=== PATIENT | female | born 1955 | race African-American/Black ===

== ENCOUNTER 2017-08-08 11:52 | Emergency (ER) | payer MEDICARE, BC ==
[~2017-08-08] VITALS: Ht 160 cm; Wt 78.0 kg
[~2017-08-08 11:52] MED LIST: ACCUPRIL10 MG; AMARYL4 MG OR; AMLODIPINE5 MG PO; AUGMENTIN250 MG PO; BD INSULIN0.5 MG/31 XX; CHERATUSSIN OR; CRESTOR10 MG PO; DIFLUCAN150 MG PO; FLEXERIL10 MG PO; GLIPIZIDE10 MG PO; GLUCOPHAGE500 MG OR; HUMULIN 70/30 SC; HUMULIN R1 M1 SC; JANUMET1 TAB PO; JANUVIA50 MG PO; LANTUS SOLOSTAR SC; LANTUS100 MG/ML SC; LORTAB 5 OR; LORTAB 7.5 PO; LOTRISONE TOP; MEDDOSEPAK OR; NAPROSYN500 MG OR; NOVOLIN R IJ; NOVOLOG MIX100 U/ML SC; PERCOCET 5/325M1 TAB PO; PRADAXA150 MG; PRAVACHOL40 MG PO; PRAVASTATIN SOD20 MG PO; PRAVASTATIN20 MG PO; PROPRANOLOL HCL20 MG PO; RISPERDAL0.5 MG PO; SEPTRA PO; ULTRAM50 MG OR; VANCOMYCIN HCL1 GM IV; VICTOZA18 MG/3 ML SC; ZITHROMAX250 MG OR; ZOVIRAX800 MG PO; [UNRECOGNIZED DRUG - REMARK] XX; [UNRECOGNIZED DRUG - SUPPLY] SC
[2017-08-08] MEDS ORDERED: LISINOPRIL20 M1 PO (13:14)
[2017-08-08 13:15] LABS: ANION GAP 18 (6-22 (CALC)); BUN 30 mg/dL (8-23); BUN/CREATININE RATIO 20 (12-20 (CALC)); CALCIUM 10.3 mg/dL (8.4-10.2); CARBON DIOXIDE 25 mmol/l (22-30); CHLORIDE 104 mmol/l (95-108); CREATININE 1.5 mg/dL (0.5-1.0); GFR 35 ML/MIN (>=60 (CALC)); GFR FOR AFR.AMER. 43 ML/MIN (>=60 (CALC)); GLUCOSE 81 mg/dL (82-115); POTASSIUM 4.5 mmol/l (3.5-5.1); SODIUM 143 mmol/l (137-146)
[2017-08-08] MEDS ORDERED: FOLIC ACID800 MCG PO (13:15)
[2017-08-08] MEDS ORDERED: ASPIRIN 81 LOW81 MG (13:16)
[2017-08-08] MEDS ORDERED: VITAMIN B-COMPL1 TAB (13:16)
[2017-08-08] MEDS ORDERED: STOOL SOFTENER100 MG PO (13:17)
[2017-08-08 13:40] LABS: HEMOGLOBIN 13.1 g/dl (12.0-16.0); RED BLOOD COUNT 4.67 mill/uL (4.20-5.60)
[2017-08-08 13:41] LABS: HEMATOCRIT 39.4 % (37.0-47.0); MEAN CELL VOLUME 84.4 fL CALC (80.0-100.0); MEAN CORPUSCULAR HGB 28.1 pG CALC (26.0-32.0); MEAN CORPUSCULAR HGB CONC 33.2 g/L CALC (32.0-36.0); NEUT% 65 % (42-76); PLATELET COUNT 333 thou/uL (130-400)
[2017-08-08 13:42] LABS: BASO% 2 % (0-3); EOS% 1 % (0-8); LYMPH% 22 % (15-41); MONO% 10 % (2-13)
[2017-08-08 13:43] VITALS: BP 151/114
== END 2017-08-08 13:50 | disposition home or self-care (01) ==
LOC: ED 11:52
PROVIDERS: Family Medicine
DX: R41.82 Altered mental status, unspecified (principal); E11.649 Type 2 diabetes mellitus with hypoglycemia without coma; Z79.4 Long term (current) use of insulin; I10 Essential (primary) hypertension

== ENCOUNTER 2017-09-04 19:06 | Observation (INO) | payer MEDICARE, BC ==
[~2017-09-04] VITALS: Ht 160 cm; Wt 70.3 kg
[~2017-09-04 19:06] MED LIST changes: +ASPIRIN 81 LOW81 MG; +FOLIC ACID800 MCG PO; +LISINOPRIL20 M1 PO; +STOOL SOFTENER100 MG PO; +VITAMIN B-COMPL1 TAB
--- NOTE | 2017-09-04 19:07 | NUR ---
CLEANED OF DIARRHEA. FAMILY CONFIRMS THAT CONFUSION IS BASELINE. THEY CALLED EMS FOR WEAKNESS X 3 DAYS. STATES SHE IS TAKING HER INSULIN BUT NOT EATING.
--- NOTE | 2017-09-04 19:40 | NUR ---
FAMILY AT BEDSIDE.
[2017-09-04] MEDS ORDERED: LIPITOR40 M1 PO (19:50)
--- NOTE | 2017-09-04 21:00 | NUR ---
RESTING QUIETLY AWAITING DISPOSITION.
[2017-09-04 21:10] LABS: C. DIFFICILE TOXIN A&B NEGATIVE (NEGATIVE)
[2017-09-04 21:29] LABS: HEMATOCRIT 43.3 % (37.0-47.0); HEMOGLOBIN 14.2 g/dl (12.0-16.0); IMMATURE GRANULOCYTES 0.4 % (0.0-1.0); MEAN CELL VOLUME 83.8 fL CALC (80.0-100.0); MEAN CORPUSCULAR HGB 27.5 pG CALC (26.0-32.0); MEAN CORPUSCULAR HGB CONC 32.8 g/L CALC (32.0-36.0); NEUT# 3.78 thou/uL (2.00-7.15); RED BLOOD COUNT 5.17 mill/uL (4.20-5.60); RED CELL DISTRI WIDTH 13.4 % (11.5-15.5)
[2017-09-04 21:38] LABS: ALBUMIN 4.1 g/dL (3.2-5.0); ALKALINE PHOSPHATASE 132 u/l (38-126); ANION GAP 23 (6-22 (CALC)); BILIRUBIN, TOTAL 0.3 mg/dL (0.0-1.4); BUN 39 mg/dL (8-23); BUN/CREATININE RATIO 18 (12-20 (CALC)); CARBON DIOXIDE 21 mmol/l (22-30); CHLORIDE 101 mmol/l (95-108); CREATININE 2.1 mg/dL (0.5-1.0); GFR 24 ML/MIN (>=60 (CALC)); GFR FOR AFR.AMER. 29 ML/MIN (>=60 (CALC)); SGOT/AST 60 u/l (9-36); SGPT/ALT 33 u/l (11-66); SODIUM 139 mmol/l (137-146); TOTAL PROTEIN 7.6 g/dL (6.3-8.2)
[2017-09-04 21:39] LABS: POTASSIUM 5.5 mmol/l (3.5-5.1)
[2017-09-04 21:50] LABS: MYOGLOBIN 247 ng/mL (0 - 62)
--- NOTE | 2017-09-04 22:23 | NUR ---
FAMILY CONCERNED STATING PT CAN'T WALK. [address] TEST PT CURRENTLY. DR EDWARDS AT BEDSIDE.
--- NOTE | 2017-09-04 22:28 | NUR ---
UNABLE TO AMBULATE. TO BE ADMITTED FAMILY AT BEDSIDE.
[2017-09-04 23:59] VITALS: BP 115/67
--- NOTE | 2017-09-04 23:59 | NUR ---
61 yr old black female admitted icu8 per stretcher as medsurg tele overflow. unable to transfer self to bed. transferred x2 assists to bed. bed weight obtained. cardiac rn shows sinus rhythm. #20 rfa ns began as ordered. appears to have mental process delay. able to say month & date of but not year, knows she is in the hosp but doesn't know date or year. history obtained per er record & old chart. bed alarm on. fall precautions initiated.
[2017-09-05 04:00] VITALS: BP 139/77
--- NOTE | 2017-09-05 04:00 | NUR ---
eyes closed. no distress. cardiac cath lab manager shows sinus rhythm occas pvcs.
--- NOTE | 2017-09-05 06:29 | NUR ---
lab here. blood drawn.
[2017-09-05 06:45] LABS: HEMATOCRIT 39.4 % (37.0-47.0); HEMOGLOBIN 12.8 g/dl (12.0-16.0); MEAN CELL VOLUME 84.5 fL CALC (80.0-100.0); MEAN CORPUSCULAR HGB 27.5 pG CALC (26.0-32.0); MEAN CORPUSCULAR HGB CONC 32.5 g/L CALC (32.0-36.0); RED BLOOD COUNT 4.66 mill/uL (4.20-5.60); RED CELL DISTRI WIDTH 13.6 % (11.5-15.5)
[2017-09-05 06:56] LABS: CREATININE 1.9 mg/dL (0.5-1.0)
[2017-09-05 07:00] LABS: POTASSIUM 5.7 mmol/l (3.5-5.1)
--- NOTE | 2017-09-05 07:30 | NUR ---
PT AROUSED EASILY TO VERBAL STIMULI; A/O X2; PT AMBULATORY TO BRP, UNSTEADY GAIT; PT ASSISTED TO RECLINER AND WITH BREAKFAST SET UP; ACCU CHECK 64; SR ON MONITOR; CALL ORNELAS WITHIN REACH; WILL CONTINUE TO MONITOR.
[2017-09-05 07:40] VITALS: BP 135/73
--- NOTE | 2017-09-05 08:40 | NUR ---
PT WITH VISITORS IN ROOM; WILL CONTINUE TO MONITOR.
[2017-09-05 12:00] VITALS: BP 128/75
--- NOTE | 2017-09-05 15:51 | NUR ---
PHYSICAL THERAPY WITH PT;
[2017-09-05 16:00] VITALS: BP 144/71
--- NOTE | 2017-09-05 16:46 | NUR ---
PT IN RECLINER VISITING WITH FAMILY; NO COMPLAINTS VOICED; CALL ORNELAS WITHIN REACH; WILL CONTINUE TO MONITOR.
--- NOTE | 2017-09-05 17:05 | NUR ---
DR. VILLEDA IN TO SEE PT;
--- NOTE | 2017-09-05 18:36 | NUR ---
USING STERILE TECHNIQUE IMPLANTED PORT ACCESS PER PROTOCOL; LAB SPECIMEN OBTAINED; PT DENIES PAIN OR DISCOMFORT; CALL ORNELAS WITHIN REACH; WILL CONTINUE TO MONITOR.
--- NOTE | 2017-09-05 20:10 | NUR ---
PT IN BED A/O X3, VERY PLEASANT ANSWEARS QUESTIONS APPROPRIATELY AND FOLLOWS DIRECTIONS, BUT STATES "DONT LET THE GORILLAS GET ME", REASURED PT THAT SHE WAS SAFE IN THE HOSPITAL, VOICES UNDERSTANDING. WHEN STAFF LEAVES ROOM PT FIDGEST WITH HEART MONITOR REMOVING IT FREQUENTLY. TELE READING ST 102 AT THIS TIME, B/P 155/73. ENCOUARGED TO USE CALL LIGHT FOR ASSISTANCE, WILL CONTINUE TO MONITOR.
[2017-09-05 21:24] VITALS: BP 160/58
--- NOTE | 2017-09-05 22:00 | NUR ---
OOB TO BATHROOM WITH SLOW UNSTEADY GAIT, VOIDING SCANT AMOUT OF URINE INTO COMMODE, NOT ABLE TO MEASURE DUE TO BEING SUCH SCANT AMOUNT, LAVONNE CARE PROVIDED, BACK TO BED. BED ALARM APPLIED.
[2017-09-06 00:13] VITALS: BP 154/87
--- NOTE | 2017-09-06 00:17 | NUR ---
HEART RATE MAINTAINING AT 120'S AT REST, DR. FREITAS NOTIFIED, STATES WILL ORDER METOPROLOL.
--- NOTE | 2017-09-06 01:40 | NUR ---
HR DOWN TO 103, PT RESTING WITH EYES CLOSED, RESPIRATIONS EVEN AND UNLABORE.
[2017-09-06 04:15] VITALS: BP 109/86
--- NOTE | 2017-09-06 05:30 | NUR ---
OOB TO BSC WITH TWO PERSON ASSISTANCE, PT IS PLEASANTLY CONFUSED, UNSTEADY GAIT. ENCOURAGED TO VOID DUE TO ONLY SCANT AMOUNT OF URINE DURING THIS SHIFT. DENIES URGE TO URINATE, BACK TO BED. BLADDER SCAN READING 999ML, DR. FREITAS NOTIFIED AND NEW ORDER FOR OJEDA CATHETER RECEIVED. INSERTED 14FR USING STERILLE TECHNIQUE, TOLERATED WELL, EMPTIED 1150ML CLOUDY YELLOW URINE. LEG STRAP APPLIED. BED ALARM IN PLACE.
[2017-09-06 05:45] LABS: URINE BILIRUBIN - DIPSTICK NEGATIVE (NEGATIVE); URINE BLOOD DIPSTICK SMALL (NEGATIVE); URINE COLOR YELLOW; URINE GLUCOSE - DIPSTICK NEGATIVE (NEGATIVE); URINE KETONE NEGATIVE (NEGATIVE); URINE LEUK ESTERASE NEGATIVE (NEGATIVE); URINE NITRITE - DIPSTICK NEGATIVE (Negative); URINE PROTEIN - DIPSTICK 30 mg/dL (NEG-TRACE); URINE UROBILINOGEN - DIPSTICK 0.2 E.U./dL (0.2)
[2017-09-06 05:46] LABS: URINE CLARITY CLOUDY
[2017-09-06 05:50] LABS: URINE AMORPH SEDIMENT MANY hpf (NONE-FEW); URINE MUCUS FEW hpf (NONE-FEW); URINE RBC 0-2 RBC/hpf (0-5); URINE SQUAMOUS EPITHELIAL CELL FEW EPI/hpf (0-FEW); URINE WBC 0-2 WBC/hpf (0-5)
[2017-09-06 06:13] LABS: HEMATOCRIT 32.9 % (37.0-47.0); MEAN CELL VOLUME 82.9 fL CALC (80.0-100.0); MEAN CORPUSCULAR HGB 27.7 pG CALC (26.0-32.0); MEAN CORPUSCULAR HGB CONC 33.4 g/L CALC (32.0-36.0); RED BLOOD COUNT 3.97 mill/uL (4.20-5.60); RED CELL DISTRI WIDTH 13.3 % (11.5-15.5)
[2017-09-06 06:22] LABS: CREATININE 1.4 mg/dL (0.5-1.0); POTASSIUM 4.4 mmol/l (3.5-5.1)
--- NOTE | 2017-09-06 07:15 | NUR ---
PT LAYING IN BED RESTING WITH EYES CLOSED, AROUSES EASILY TO VERBAL STIMULI, PERRL, A & O X3, PT HAS MOMENTS OF CONFUSION AND IS REORIENTED EASILY NEEDED, HR 102, RESP. 18, BP 150/89, O2 97% ON RA, LUNG SOUNDS CLEAR IN ALL FILEDS, R SUBCLAVIAN PORT PREVIOUSLY ACCESSED BY RN, NS INFUSING AT PRESCRIBED RATE, STRONG RADIAL PULSES, WEAK PEDAL PULSES, OJEDA REMAINS IN PLACE SECURED WITH CATH STRAP, DRAINING CLEAR YELLOW URINE, AM ASSESSMENT COMPLETE, SEE INTERVENTIONS, SAFETY MEASURES REINFORCED, CALL ORNELAS WITHIN REACH
--- NOTE | 2017-09-06 07:35 | NUR ---
SETUP ASSISTANCE PROVIDED WITH GEO MAHAN
[2017-09-06 08:00] VITALS: BP 179/99
--- NOTE | 2017-09-06 09:15 | NUR ---
CASE MANAGEMENT AT BEDSIDE TO DISCUSE DISCHARGE PLANNING, PT UNWILLING TO ANSWER QUESTIONS
--- NOTE | 2017-09-06 09:25 | NUR ---
DR FREITAS AT BEDSIDE DISCUSSING PLAN OF CARE
--- NOTE | 2017-09-06 10:35 | NUR ---
VISITOR AT BEDSIDE
--- NOTE | 2017-09-06 11:08 | NUR ---
PT SITTING UP IN THE BED TALKING TO VISITOR WHO IS AT BEDSIDE, CALL ORNELAS WITHIN REACH
--- NOTE | 2017-09-06 11:35 | NUR ---
SETUP ASSISTANCE PROVIDED WITH LUNCH TRAY
[2017-09-06 12:00] VITALS: BP 134/72
--- NOTE | 2017-09-06 12:10 | NUR ---
PT SITTING UP IN THE BED TALKING TO VISITORS WHO ARE BEDSIDE, NO S/S OF DISTRESS, REMINDED TO CALL FOR ASSISTANCE, CALL ORNELAS WITHIN REACH
--- NOTE | 2017-09-06 14:45 | NUR ---
PT LAYING IN BED RESTING WITH EYES CLOSED AROUSES EASILY TO VERBAL STIMULI, PT VERBALIZES NO COMPLAINTS, REMINDED TO CALL FOR ASSISTANCE, CALL ORNELAS WITHIN REACH
--- NOTE | 2017-09-06 15:29 | NUR ---
P.T. AT BEDSIDE WORKING WITH PT, PT AMBULATED AROUND THE UNIT, PT TOLERATING WELL
--- NOTE | 2017-09-06 15:53 | NUR ---
Pt. seen this PM for gait training, gait belt and non skid socks applied prior to doing so. Supine to sit with continual verbal tactile cues to advance LE's to edge of bed. Sit to stand to RW x2 attempts with CGA x1 and continual verbal cues for UE push off from bed as well as visual demonstrations. Pt. ambulated 1x35 feet using RW and with CGA x1, steps are short and shuffled. Pt. required assistance for guiding RW. Stand to sit to supine done with min. assist x1 for bringing LE's up to bed. HOB elevated, call light reviewed and left within reach. Pt. without questions or concerns.
[2017-09-06 16:00] VITALS: BP 165/102
--- NOTE | 2017-09-06 17:30 | NUR ---
SETUP ASSISTANCE PROVIDED WITH PM MEAL
--- NOTE | 2017-09-06 17:54 | NUR ---
CASE MANAGEMENT AT BEDSIDE DISCUSSING DISCHARGE PLANNING
[2017-09-06 19:00] VITALS: BP 147/83
--- NOTE | 2017-09-06 20:00 | NUR ---
PT IN BED WATCHING TV, RESPIRATIONS EVEN AND UNLABORED ON RA, DENIES PAIN OR DISCOMFORT. ALERT TO SELF AND , IS CONFUSED, ORIENTED TO TIME AND PLACE. NS INFUSING TO RIGHT SUBCLAVIAN PORT AT 20CC/HR. OJEDA DRAINING LIGHT YELLOW URINE. BED ALARM IN PLACE. ORIENTED TO USE CALL LIGHT FOR ASSISTANCE, WILL CONTINUE TO MONITOR.
[2017-09-07] VITALS: BP 146/79
--- NOTE | 2017-09-07 | NUR ---
RESTING ON RIGHT SIDE WITH EYES CLOSED, RESPIRATIONS EVEN AND UNLABORED, WAKES EASILY FOR VITAL SIGNS, DENIES DISCOMFORT. CALL LIGHT IN REACH.
--- NOTE | 2017-09-07 02:00 | NUR ---
RESTING WITH EYES CLOSED, RESPIRATIONS EVEN AND UNLABORED, CALL LIGHT IN REACH.
[2017-09-07 04:03] VITALS: BP 146/79
--- NOTE | 2017-09-07 05:35 | NUR ---
RESTING WITH EYES CLOSED, WAKES EASILY TO VERBAL COMMAND, MORNING BLOOD WORK DRAWN FROM RIGHT SUBLAVIAN PORT. BACK TO SLEEP.
[2017-09-07 05:42] LABS: HEMATOCRIT 31.3 % (37.0-47.0); HEMOGLOBIN 10.6 g/dl (12.0-16.0); IMMATURE GRANULOCYTES 0.4 % (0.0-1.0); MEAN CELL VOLUME 82.8 fL CALC (80.0-100.0); MEAN CORPUSCULAR HGB CONC 33.9 g/L CALC (32.0-36.0); PLATELET COUNT 185 thou/uL (130-400); RED BLOOD COUNT 3.78 mill/uL (4.20-5.60); RED CELL DISTRI WIDTH 13.3 % (11.5-15.5)
[2017-09-07 05:45] LABS: CREATININE 1.4 mg/dL (0.5-1.0)
[2017-09-07 06:23] LABS: MANUAL DIFFERENTIAL YES
[2017-09-07 06:24] LABS: BAND 3 % (0-8)
[2017-09-07 07:10] VITALS: BP 149/83
--- NOTE | 2017-09-07 07:10 | NUR ---
PT LAYING IN BED RESTING WITH EYES CLOSED, AROUSES EASILY TO VERBAL STIMULI, ALERT AND ORIENTED TO PERSON & PLACE, PERRL, HR 88, RESP. 18, BP 149/83, O2 97% ON RA, LUNG SOUNDS CLEAR IN ALL CANTRELL, STRONG RADIAL PULSES, WEAK PEDAL PULSES, R SUBCLAVIAN PORT PREVIOUSLY ACCESSED BY RN, AM ASSESSMENT COMPLETE, SEE INTERVENTIONS, SAFETY MEASURES REINFORCED, CALL ORNELAS WITHIN REACH
--- NOTE | 2017-09-07 07:30 | NUR ---
SETUP ASSISTANCE PROVIDED WITH AM MEAL, PT ENCOURAGED TO EAT, PT FEEDING SELF
--- NOTE | 2017-09-07 08:40 | NUR ---
DR FREITAS AT BEDSIDE DISCUSSING PLAN OF CARE
[2017-09-07] MEDS ORDERED: LOPRESSOR25 MG PO (08:51)
--- NOTE | 2017-09-07 09:30 | NUR ---
FAMILY AT BEDSIDE FEEDING PT, UNSURE OF REASON, PT ABLE TO FEED SELF
--- NOTE | 2017-09-07 10:45 | NUR ---
OJEDA CATH REMOVED, CATH INTACT, PT ASSISTED TO RECLINER WITH MINIMAL ASSISTANCE, PT AMBULATED WITH A SLOW STOMPING GAIT, PT TOLERATED WELL, PT EDUCATED THAT SHE WOULD NEED TO LET THE NURSE KNOW WHEN SHE HAS TO VOID, PT VERBALIZES UNDERSTANDING, PT REMINDED TO CALL FOR ASSISTANCE, CALL ORNELAS WITHIN REACH
--- NOTE | 2017-09-07 11:35 | NUR ---
SETUP ASSISTANCE PROVIDED, PT STATED, "I DON'T WANT IT. MY SISTER WILL BE IN SOON TO TAKE IT AWAY FOR ME.", PT ENCOURAGED TO TRY AND EAT, PT OFFERED OTHER OPTIONS WELL, REMINDED TO CALL FOR ASSISTANCE, CALL ORNELAS WITHIN REACH
[2017-09-07 12:00] VITALS: BP 148/80
--- NOTE | 2017-09-07 12:10 | NUR ---
PT SITTING UP IN THE RECLINER, TOLERATING WELL, VERBALIZES NO COMPLAINTS, REMINDED TO CALL FOR ASSISTANCE, CALL CECI PAGE
--- NOTE | 2017-09-07 14:05 | NUR ---
CALL PLACED TO PT'S FAMILY PER PT'S REQUEST TO LET THEM KNOW SHE WAS BEING DISCHARGED
--- NOTE | 2017-09-07 14:24 | NUR ---
P.T. AT BEDSIDE WORKING WITH PT, PT AMBULATED AROUND THE UNIT, TOLERATING WELL
--- NOTE | 2017-09-07 14:38 | NUR ---
PT WAS SEEN SITTING IN THE RECLINER. STOOD UP WITH >3 ATTEMPTS WITH STEADY IMMEDIATE STANDING BALANCE. AMBULATED WITH RW AND SBA TO ENSURE SAFETY ~40 FT. X 2. PT WAS STILL DISORIENTED AND CONFUSED WITH HALLUCINATIONS. PT WAS ASSISTED BACK TO BED WITH MOTHER IN THE ROOM. NOTIFIED NRSNG WHO THEN PREPARED PT FOR DISCHARGE. NO ADVERSE RXNS NOTED OR REPORTED AT THE END OF ACTIVITY.
--- NOTE | 2017-09-07 14:40 | NUR ---
R CHEST WALL PORT FLUSHED PER PROTOCOL AND DEACCESSED PER PROTOCOL, PT TOLERATED WELL.
--- NOTE | 2017-09-07 14:59 | NUR ---
Discharge instructions given. Patient verbalizes understanding of same. Discharged in stable condition via Wheelchair to Home with family. All belongings sent with pt.
== END 2017-09-07 14:50 ==
LOC: ED 19:06 → ED-I 22:18 → ED 22:45 → ICU 22:46
PROVIDERS: Emergency Medicine; Nurse Practitioner Family; ADMIT Internal Medicine; ATTEND Internal Medicine
PROC: 0T9B70Z Drainage of Bladder with Drainage Device, Via Natural or Artificial Opening (ICD-10-PCS; principal; 2017-09-06)
DX: E11.649 Type 2 diabetes mellitus with hypoglycemia without coma (principal); G93.41 Metabolic encephalopathy; E86.0 Dehydration; E78.5 Hyperlipidemia, unspecified; E87.5 Hyperkalemia; E11.22 Type 2 diabetes mellitus with diabetic chronic kidney disease; I12.9 Hypertensive chronic kidney disease with stage 1 through stage 4 chronic kidney disease, or unspecified chronic kidney disease; N18.3 Chronic kidney disease, stage 3 (moderate); N17.9 Acute kidney failure, unspecified; I95.9 Hypotension, unspecified; R33.9 Retention of urine, unspecified; F03.90 Unspecified dementia, unspecified severity, without behavioral disturbance, psychotic disturbance, mood disturbance, and anxiety; Z86.73 Personal history of transient ischemic attack (TIA), and cerebral infarction without residual deficits; Z79.4 Long term (current) use of insulin
CPT/HCPCS: J3475

== ENCOUNTER 2017-09-09 19:44 | Emergency (ER) | payer MEDICARE, BC ==
[~2017-09-09] VITALS: Ht 160 cm; Wt 65.9 kg
[~2017-09-09 19:44] MED LIST changes: +LIPITOR40 M1 PO; +LOPRESSOR25 MG PO
[2017-09-09 23:09] VITALS: BP 142/82
== END 2017-09-09 23:13 | disposition home or self-care (01) ==
LOC: ED 19:44
DX: E11.65 Type 2 diabetes mellitus with hyperglycemia (principal); Z79.4 Long term (current) use of insulin; R41.0 Disorientation, unspecified; I10 Essential (primary) hypertension

== ENCOUNTER 2018-05-04 09:52 | Outpatient (REF) | payer MEDICARE | END 2018-05-04 11:27 | disposition home or self-care (01) | LOC: INF 09:52 | PROVIDERS: ATTEND Internal Medicine | PROC: 3C1ZX8Z Irrigation of Indwelling Device using Irrigating Substance, External Approach (ICD-10-PCS; principal; 2018-05-04) | DX: Z45.2 Encounter for adjustment and management of vascular access device (principal) ==

== ENCOUNTER → 2018-09-21 | Outpatient (REF) | END | disposition home or self-care (01) | DRG 683 | LOC: LAB 09:10 | PROVIDERS: ATTEND Internal Medicine Nephrology | DX: N18.3 Chronic kidney disease, stage 3 (moderate) (principal); N25.81 Secondary hyperparathyroidism of renal origin; D63.1 Anemia in chronic kidney disease ==

== ENCOUNTER → 2018-10-09 | Outpatient (REF) | payer MEDICARE | END | disposition home or self-care (01) | LOC: INF 10:00 | PROVIDERS: ATTEND Internal Medicine | PROC: 3C1ZX8Z Irrigation of Indwelling Device using Irrigating Substance, External Approach (ICD-10-PCS; principal; 2018-10-09) | DX: Z45.2 Encounter for adjustment and management of vascular access device (principal) ==

== ENCOUNTER 2019-05-21 17:47 | Observation (INO) | payer MEDICARE ==
[~2019-05-21] VITALS: Ht 167.6 cm; Wt 73.0 kg
--- NOTE | 2019-05-21 18:02 | NUR ---
TO ROOM 8 VIA WHEELCHAIR.
--- NOTE | 2019-05-21 18:40 | NUR ---
PORT ACCESSED USING STERILE TECHNIQUE 20GUAGE 0.75 INCH ESTRADA NEEDLE WITH GOOD BLOOD RETURN. PATIENT TOLERATED WELL
--- NOTE | 2019-05-21 18:45 | NUR ---
GAVE REPORT TO VENKATA
[2019-05-21 18:51] LABS: HEMATOCRIT 35.7 % (37.0-47.0); HEMOGLOBIN 11.8 g/dl (12.0-16.0); IMMATURE GRANULOCYTES 0.4 % (0.0-5.0); MEAN CELL VOLUME 81.7 fL CALC (80.0-100.0); MEAN CORPUSCULAR HGB CONC 33.1 g/L CALC (32.0-36.0); NEUT# 3.13 thou/uL (2.00-7.15); RED BLOOD COUNT 4.37 mill/uL (4.20-5.60); RED CELL DISTRI WIDTH 13.8 % (11.5-15.5)
--- NOTE | 2019-05-21 19:00 | NUR ---
BEFORE LABATALOL BP 187/91 HR 96 100% RR 21
--- NOTE | 2019-05-21 19:07 | NUR ---
5 MINS AFTER LABATALOL BP 181/79 HR 95 97% RR 16
[2019-05-21 19:10] LABS: ALBUMIN 3.7 g/dL (3.2-5.0); ALKALINE PHOSPHATASE 135 u/l (38-126); BILIRUBIN, TOTAL 0.3 mg/dL (0.0-1.4); BUN 31 mg/dL (8-23); BUN/CREATININE RATIO 19 (12-20 (CALC)); CARBON DIOXIDE 26 mmol/l (22-30); CHLORIDE 95 mmol/l (95-108); CREATININE 1.6 mg/dL (0.5-1.0); GFR 33 ML/MIN (>=60 (CALC)); GFR FOR AFR.AMER. 39 ML/MIN (>=60 (CALC)); LIPASE 171 u/l (23-300); SGOT/AST 20 u/l (9-36); TOTAL PROTEIN 7.3 g/dL (6.3-8.2)
[2019-05-21 19:16] LABS: ANION GAP 14 (6-22 (CALC)); POTASSIUM 5.2 mmol/l (3.5-5.1); SODIUM 130 mmol/l (137-146)
[2019-05-21 19:43] LABS: TSH, 3RD GENERATION 1.82 uIU/mL (0.47 - 4.68)
--- NOTE | 2019-05-21 19:45 | NUR ---
CONFUSED. REMINDED TO STAY IM BED.
--- NOTE | 2019-05-21 20:19 | NUR ---
FAMILY AT BEDSIDE. REMAINS CONFUSED.
--- NOTE | 2019-05-21 20:30 | NUR ---
SAYS HE DID NOT GIVE HER LONG ACTING INSULIN BECAUSE SHE WAS 121 GLUCOSE THIS AM. DOES NOT REALLY UNDERSTAND THE PROPER CARE OF HER DIABETES. NEEDS ADDITIONAL EXTENSIVE TEACHING.
--- NOTE | 2019-05-21 21:00 | NUR ---
Admission Note Report Given to: SHAW ADKINS Transported by: Wheelchair X Stretcher Transported with: X Nurse Transporter X Patent IV O2 X Fountain Attendant IN ATTENDANCE.
--- NOTE | 2019-05-21 21:05 | NUR ---
PT. ARRIVES BY STRETCHER FROM ER. AWAKE, ALERT, ORIENTED TO PERSON AT THIS TIME. REORIENTED TO PLACE AND TIME. RESPS EVEN AND UNLABORED. PT. WITH DEMENTIA. SPOUSE AT BEDSIDE AT THIS TIME. BP STABLE ON ARRIVAL AT 160 SYSTOLIC. CARDENE DRIP WILL BE HELD AT THIS TIME PER PHYSICIAN ORDERS. LUNGS CTA. BOWEL SOUNDS ACTIVE. NO EDEMA NOTED. SKIN WARM AND DRY. SHAHID. WILL CLOSELY MONITOR.
[2019-05-21 21:15] VITALS: BP 163/81
[2019-05-21 21:30] VITALS: BP 155/74
[2019-05-21 21:45] VITALS: BP 171/81
[2019-05-21 22:00] VITALS: BP 163/79
--- NOTE | 2019-05-21 22:22 | NUR ---
PT. RESTING IN BED WITH EYES CLOSED. BP IMPROVED. REMAINS CONFUSED, BUT PLEASANT. HALLUCINATING SEEING FROGS ON THE CEILING AND "VARGHESE EMERSON" ACROSS THE DEPARTMENT. REASSURED THERE ARE NO FROGS IN THE DEPARTMENT AND THAT VARGHESE IS NOT PRESENT. WILL CONTINUE TO CLOSELY MONITOR AND REORIENT NEEDED.
[2019-05-22] VITALS (12 sets, daily range): BP systolic 94–183; BP diastolic 56–104
--- NOTE | 2019-05-22 00:58 | NUR ---
PT. RESTING IN BED WITH EYE CLOSED IN NO DISTRESS. RESPSP REMAIN EVEN AND UNLABORED. SKIN REMAINS WARM AN DDR. AFEBRILE. REMAINS RESTFUL AT THIS TIME. CALL LIGHT WITHIN REACH. WILL CONTINUE TO ASSESS.
--- NOTE | 2019-05-22 03:05 | NUR ---
PT. ASSISTED TO AND FROM RESTROOM AT THIS TIME. RESPS REMAIN EVEN AND UNLABORED. SKIN REMAINS WARM AND DRY. URINE SPECIMEN OBTAINED AND WILL SEND TO LAB. REMAINS ORIENTED TO PERSON ONLY.
[2019-05-22 05:01] LABS: URINE BILIRUBIN - DIPSTICK NEGATIVE (NEGATIVE); URINE BLOOD DIPSTICK NEGATIVE (NEGATIVE); URINE COLOR YELLOW; URINE GLUCOSE - DIPSTICK 500 mg/dL (NEGATIVE); URINE KETONE NEGATIVE (NEGATIVE); URINE LEUK ESTERASE NEGATIVE (NEGATIVE); URINE NITRITE - DIPSTICK NEGATIVE (Negative); URINE PROTEIN - DIPSTICK 30 mg/dL (NEG-TRACE); URINE SPECIFIC GRAVITY <=1.005; URINE UROBILINOGEN - DIPSTICK 0.2 E.U./dL (0.2)
--- NOTE | 2019-05-22 05:30 | NUR ---
PT. AWAKE, ALERT, ORIENTED TO PERSON ONLY. BP/HR REMAIN STABLE AT THIS TIME. PT. DENIES COMPLAINT OF PAIN OR NEED AT THIS TIME. UPDATED ON AM PLAN OF CARE. CALL LIGHT REMAINS WITHIN REACH. WILL CONTINUE TO ASSESS.
[2019-05-22 05:58] LABS: URINE EPITHELIAL CELLS FEW EPI/hpf (0-FEW)
[2019-05-22 05:59] LABS: URINE BACTERIA FEW hpf; URINE YEAST FEW hpf
--- NOTE | 2019-05-22 07:05 | NUR ---
pt resting in bed with eyes closed; no apparent distress noted; upon turning on light, pt noted drenched with sweat; cold and calmy; pt arousable with slurred speech and inability to respond approp to this medical underwriter; accucheck noted at crtitical low; pt unable to tolerate po; D50 1/2 amp andministered; medical underwriter remains at bedside;
--- NOTE | 2019-05-22 07:12 | NUR ---
am labs obtained from right chest port; D50 administered with great response; contract writer remains at bedside
--- NOTE | 2019-05-22 07:20 | NUR ---
pt awake in bed; no apparent distress noted at this; assessment completed; pt alert to person only (hx of dementia); denies pain; no n/v noted; pt denies headache; resp even and unlabored; lungs clear bilat; skin color wnl; ra; hr reg; weak pedal pulses; no edema noted; sr on monitor; abd soft with bs present; no bm noted per process description writer; no urine to inspect at this time; right chest port accessed; flushed with great blood aspirate; no redness or edema noted at site; healing abrasion noted to left knee; plan of care/ am care explained; accucheck reassessed at 125; pt sitting on side of bed for breakfast; process description writer remains at bedside for safety; call light within reach; will continue to monitor
[2019-05-22 07:43] LABS: HEMATOCRIT 35.7 % (37.0-47.0); HEMOGLOBIN 11.7 g/dl (12.0-16.0); MEAN CELL VOLUME 82.4 fL CALC (80.0-100.0); MEAN CORPUSCULAR HGB CONC 32.8 g/L CALC (32.0-36.0); RED BLOOD COUNT 4.33 mill/uL (4.20-5.60); RED CELL DISTRI WIDTH 13.7 % (11.5-15.5)
[2019-05-22 08:00] LABS: CREATININE 1.5 mg/dL (0.5-1.0)
[2019-05-22 08:02] LABS: POTASSIUM 3.6 mmol/l (3.5-5.1)
--- NOTE | 2019-05-22 08:18 | NUR ---
awake sitting on side of bed; offers no complaints; no apparent distress noted; accucheck reassessed at 132; 100% of breakfast tolerated; sr on monitor; will continue to monitor
--- NOTE | 2019-05-22 08:50 | NUR ---
awake in bed; assisted with bath; complete linen change; port dressing changed d/t being comprimised/ diaphoresis this am; temp 92.5; maxx hugger applied with high heat; pt skin cold to touch; sr on monitor; call light within reach; will continue to monitor
--- NOTE | 2019-05-22 09:25 | NUR ---
Dr Love present at bedside to assess pt and discuss plan of care; pt is very adamant about returning home after discharge
[2019-05-22] MEDS ORDERED: FUROSEMIDE20 MG PO (09:53)
[2019-05-22] MEDS ORDERED: LOPRESSOR25 M1 PO (09:54)
[2019-05-22] MEDS ORDERED: ATORVASTATIN CA40 MG PO (09:55)
[2019-05-22] MEDS ORDERED: RAYALDEE30 MCG PO (10:00)
--- NOTE | 2019-05-22 10:00 | NUR ---
awake in bed; no apparent distress noted; pt offers no complaints; iv intact; sr on monitor; pt denies pain/ chest pain; accucheck 189 ([id number]); levkiran order clarified with MD and 25 units to be given this am; bed alarm active for pt safety; call light within reach; will continue to monitor
[2019-05-22] MEDS ORDERED: [UNRECOGNIZED DRUG - CODE] (10:01)
--- NOTE | 2019-05-22 12:15 | NUR ---
awake in bed; refused lunch; no apparent distress noted; pt offers no complaints; sr on monitor; iv intact and patent; no redness or edema noted at site; pt more anxious about going home; reorient to place and time; cooperative with care; will continue to monitor
--- NOTE | 2019-05-22 13:22 | NUR ---
confused; frequently attempting to climb out of bed; reoriented; bed alarm active for pt safety; will continue to monitor
--- NOTE | 2019-05-22 13:52 | NUR ---
alarm sounding; pt attempting to climb out of bed; pt states "you again, you're not going to help me"; this marketing writer inquires what do you need help with; pt noted rubbing stomach and states "the baby", I need help delivering the baby; reoriented; will continue to monitor
--- NOTE | 2019-05-22 14:10 | NUR ---
awake in bed; confused; pt noted associating herself with television show; sr on monitor; iv patent; fluids infusing without complication; pt denies pain/ headache; medicated with xanax as per orders; reorientation unsuccessful; bed alarm active for pt safety; increase visual observation for pt safety; maxx dc placed on hold; temp 97.2; will continue to monitor
--- NOTE | 2019-05-22 14:23 | NUR ---
family at bedside
--- NOTE | 2019-05-22 16:05 | NUR ---
awake in bed; calm and cooperative; no apparent distress noted; pt offers no complaints; denies headache; visitor present at bedside; sr on monitor; iv intact and patent; call light within reach; will continue to monitor
--- NOTE | 2019-05-22 17:25 | NUR ---
accucheck 73; pt assist to sit on side of bed; spouse at bedside to assist with feeding pt; will continue to monitor
--- NOTE | 2019-05-22 18:13 | NUR ---
awake sitting on side of bed; offers no complaints; family departed; pt denies pain; iv patent; fluids infusing without complication; sr on monitor; bed alarm active for pt safety; call light within reach
--- NOTE | 2019-05-22 18:40 | NUR ---
REPORT FROM Nathanael HERNANDES RN. ASSUMED PT. CARE.
--- NOTE | 2019-05-22 18:45 | NUR ---
UNABLE TO EVEN COMPLETE REPORT PATIENT IS CONFUSED AND AGGITATED ATTEMPTING TO STAND UP AND LEAVE. ATTEMPTS TO REORIENT PATIENT ARE UNSUCCESSFUL. SHE REMAINS AGGITATED AND HALLUCINATING. STATING THAT SHE IS SEEING PEOPLE SITTING ON THE ROOF. MADE AWARE. NEW ORDERS RECEIVED.
--- NOTE | 2019-05-22 19:10 | NUR ---
PT. REMAINS AGGITATED. UNABLE TO EVEN LEAVE THE BEDSIDE MOMENTARILY. SHE REMAINS ORIENTED TO PERSON ONLY. CONTINUES TO BE AGGITATED AND HALLUCINATE. ANY ATTEMPT TO REORIENT REMAINS UNSUCCESSFUL.
--- NOTE | 2019-05-22 19:30 | NUR ---
PT. ASSISTED BACK TO BED AT THIS TIME. SHE REMAINS AGGITATED AND ATTEMPTING TO GET OUT OF BED. NURSING STAFF REMAINS UNABLE TO LEAVE THE PATIENT BEDSIDE. MULTIPLE NURSES AT BEDSIDE IN ATTEMPT TO CALM PATIENT BUT REMAIN FUTILE.
--- NOTE | 2019-05-22 21:00 | NUR ---
PT. RESTING IN BED WITH EYES CLOSED AT THIS TIME. FINALLY RESTING. WILL CONTINUE TO CLOSELY MONITOR.
--- NOTE | 2019-05-22 22:30 | NUR ---
PT. ASSISTED TO BEDSIDE COMMODE PER HER STATED NEED TO URINATE. PT. DID NOT URINATE AND WENT BACK TO BED. AGAIN WITHIN 5 MINUTES PATIENT REQUESTING TO URINATE AGAIN. REMAINS AGGITATED AND HIGLY CONFUSED ALONG WITH BEING UNABLE TO REORIENT PATIENT TO SITUATION. SHE IS UNABLE TO COMPREHEND OR PERFORM EVEN THE SIMPLIST OF COMMANDS. REFUSING TO TAKE XANAX PILL. SPITTING THEM OUT. WAS FINALLY ABLE TO GET PATIENT TO TAKE PILL AFTER ABOUT 15 MINUTES OF NEGOTIATING WITH THE PATIENT.
[2019-05-23] VITALS (14 sets, daily range): BP systolic 105–182; BP diastolic 54–87
--- NOTE | 2019-05-23 00:15 | NUR ---
PT. RESTING AT THIS TIME WITH EYES CLOSED IN NO DISTRESS. SLEEPING AT THIS TIME. RESPS REMAIN EVEN AND UNLABORED. SKIN COOL AND DRY. WILL CONTINUE TO TO MONITOR.
--- NOTE | 2019-05-23 02:02 | NUR ---
PT. RESTING IN BED WITH SNORING RESPIRATIONS. VOICES NO COMPLAINTS OR NEEDS. SKIN REMAINS COOL AND DRY. CALL LIGHT WITHIN REACH. NO DISTRESS.
--- NOTE | 2019-05-23 04:35 | NUR ---
PT. FOUND COOL TO THE TOUCH AND DRY WITH TYMPANIC TEMP OF 92. REPEAT ACCUCHECK IS FOUND TO BE CRITICAL LOW AT THIS TIME. RESPS REMAIN EVEN AND UNLABORED. MEDICATED EMERGENTLY WITH 1 AMP OF D50% AT THIS TIME PER ORDERS. WILL GIVE JUICE AND CRACKERS WHEN MORE AWAKE.
--- NOTE | 2019-05-23 04:45 | NUR ---
MERLIN SOMMERS IN PLACE AT THIS TIME.
--- NOTE | 2019-05-23 05:24 | NUR ---
ACCUCHECK NOW 134 AT THIS TIME. WILL CONTINUE TO MONITOR.
--- NOTE | 2019-05-23 05:47 | NUR ---
LABS OBTAINED FROM [facility] AND SENT.
[2019-05-23 05:50] LABS: HEMATOCRIT 30.9 % (37.0-47.0); HEMOGLOBIN 10.2 g/dl (12.0-16.0); MEAN CELL VOLUME 83.5 fL CALC (80.0-100.0); MEAN CORPUSCULAR HGB 27.6 pG CALC (26.0-32.0); NEUT# 1.68 thou/uL (2.00-7.15); RED BLOOD COUNT 3.7 mill/uL (4.20-5.60)
[2019-05-23 06:01] LABS: CREATININE 1.3 mg/dL (0.5-1.0); POTASSIUM 3.5 mmol/l (3.5-5.1)
--- NOTE | 2019-05-23 06:45 | NUR ---
REPORT RECVD FROM SHAW ADKINS @START OF SHIFT.
--- NOTE | 2019-05-23 07:10 | NUR ---
PT AWAKE, LOOKING AROUND ROOM. ACCUCHECK 60, PT GIVEN ORANGE JUICE +SUGAR. THEN PT FELL BACK ASLEEP. BED ALARM SET, DOOR & CURTAINS OPEN FOR BETTER OBSERVATION.
--- NOTE | 2019-05-23 07:50 | NUR ---
PT ASSISTED UP TO BSC x2 FOR URINATION. LINENS/GOWN CHANGED. PT GIVEN COMPLETE BED BATH WHILE UP.
--- NOTE | 2019-05-23 08:04 | NUR ---
PTS TEMP 94.4 TYM. MERLIN SHADYGGER ON. PT SITTING UP IN BED, EATING BREAKFAST. BED ALARM ON.
--- NOTE | 2019-05-23 08:30 | NUR ---
PT STATED SHE WAS WORRIED ABOUT ME, WHEN ASKED WHY, PT STATED THAT I HAD A HAMMER ON MY HEAD.
--- NOTE | 2019-05-23 08:43 | NUR ---
PT ASSISTED UP TO BSC FOR URINATION.
--- NOTE | 2019-05-23 08:50 | NUR ---
DR FREITAS @BEDSIDE ASSESSING PT.
--- NOTE | 2019-05-23 08:56 | NUR ---
@BEDSIDE. DR FREITAS DISCUSSING POC.
--- NOTE | 2019-05-23 09:21 | NUR ---
DISPO PENDING DECISION FOR WHERE TO DC PT TO.
--- NOTE | 2019-05-23 09:37 | NUR ---
PT ASSISTED UP TO BSC.
--- NOTE | 2019-05-23 13:09 | NUR ---
PTATIENT AWAKE REPOSITIONED IN BED, EATING PATIENT FEEDING HERSELF LUNCH, WILL CONTINUE TO MONITOE CLOSELY.
--- NOTE | 2019-05-23 15:07 | NUR ---
PT IS VERY RESTLESS, CONTINOUSLY REMOVING BLANKETS/MERLIN HUGGER, AND TRYING TO CLIMB OUT OF BED.
--- NOTE | 2019-05-23 16:24 | NUR ---
PT CALLING OUT NAMES, THEN YELLING AT OTHER PEOPLE (THAT ARE NOT IN THE ROOM). PT CONTINUES TO TRY TO CLIMB OUT OF BED & REMOVE BLANKETS/MERLIN HUGGER & MONITORS. PT MEDICATED FOR AGITATION. BED ALARM ON. CURTAINS/DOORS OPEN FOR CLOSER OBSERVATION.
--- NOTE | 2019-05-23 16:53 | NUR ---
PT APPEARS RESTFUL AT THIS TIME, SLEEPING IN BED. WILL CONTINUE TO MONITOR.
--- NOTE | 2019-05-23 17:16 | NUR ---
PT CONTINUES TO REMOVE BLANKETS & TRY TO CLIMB OUT OF BED. PT REDIRECTED.
--- NOTE | 2019-05-23 19:00 | NUR ---
ASSITED WITH CHANGING SHEETS AND REPSOITIONING PATIENT, SHE VOIDED LARGE AMOUNT AND WAS INCONTINENT. PATIENT ALERT AND ORIENTED TO HER DATE. WHEN ASKED FOR HER NAME SHE WOULD ONLY MENTION HER DATE. WHILE CLEANING HER UP SHE WOULD AT TIMES PUSH MY ARMS AWAY AND WAS AGITATED, C/O PAIN ON HER LEGS. HEAD TO TOE NURSING ASSESMENT PERFORMED. ON ROOM AIR. SATS 97%, NO RESPIRATORY DISTRESS NOTED. AFEBRILE. BEAR HUGGER SHEET TAKEN OFF DUE TO IT WRIPPED. NEW SHEET WILL BE PROVIDED. PATIENT DOES NOT FULLY FOLLOW ALL DIRECTIONS. SHE ONLY ANSWERS SOME QUESTIONS. R-UPPER CHEST PORT INTACT, FLUSHED AND RETURNS BLOOD PROPERLY, NS AT 100 ML/HR. SR-ST ON TELEMETRY. EDUCATED AND DEMOSNTARTED CALL LIGHT SYSTEM. WILL CONTINUE TO MONITOR.
--- NOTE | 2019-05-23 19:40 | NUR ---
MARY SOMMERS WAS PLACED BACK ON BY SHAW COLLINS, HAS ARRIVED AT BEDSIDE.
--- NOTE | 2019-05-23 20:00 | NUR ---
PATIENT YELLS ALOUD, "HELP." WHEN ASKED IF SHE NEEDS ANYTHING, SHE HAS CONFUSED CONVERSATIONS AND REPORTS SHE DOES NOT NEED ANYTHING. REORIENTED AND REASSURED EACH TIME. EDUCATED AND DEMONSTRATED TIRE SORTER LIGHT. CALL LIGHT WITHIN REACH. WILL CONTINUE TO MONITOR.
--- NOTE | 2019-05-23 21:12 | NUR ---
patient able to tolerate her bedtime medications. she is confused, trying to get out of bed even after being reoriented and reassured. xanax given. patient pulling off bear hugger, temp now is 97.8 degrees f, bear hugger taken off at this moment, will continue to monitor.
--- NOTE | 2019-05-23 22:00 | NUR ---
PATIENT TRYING TO GET OUT OF BED. ASSISTED PATIENT TO BSC, HAD LARGE INCONTINENT AND VOIDED 300 ON BSC. PATIENT ALSO GIVEN COMPLETE BATH WHILE SITTING ON COMMODE, SHE WAS ENCOURAGED TO PARTICIPATE BUT DOES NOT FOLLOW DIRECTIONS, TRIED TO STAND UP FROM BSC. I CALLED SHAW COLLINS TO ASSIST FOR SAFETY. PATIENT ABLE TO SAFELY TRANSFER BACK TO BED. PATIENT BECOMES AGITATED WHEN TRYIG TO HELP AND KEEP HER SAFE. CONTINUES TO HAVE CONFUSED CONVERSATIONS.CLEANS SHEETS PROVIDED.
--- NOTE | 2019-05-23 22:24 | NUR ---
PATIENT GIVEN TYLENOL FOR C/O HEADACHE. PATIENT ALSO PROVIDED WITH HER BEDTIME SNACK, VANILLA PUDDING AND 1% MILK.HOB NEAR 50 DEGREES.
[2019-05-24] VITALS (10 sets, daily range): BP systolic 103–152; BP diastolic 50–79
--- NOTE | 2019-05-24 00:15 | NUR ---
APTIENT IS AWAKE BUT CALM AND COOPERATIVE, NO ACUTE DISTRESS HOWN, NO COMPLAINTS. CALL LIGHT WITHIN REACH. WILL CONTINUE TO MONITOR.
--- NOTE | 2019-05-24 00:33 | NUR ---
PATIENT HOB 30 DEGREES, SHE IS AWKE, CALM AND COOPERATIVE, BLOOD SUGAR WAS CHECKED, 177 MG/DL. WILL CONTINUE TO MONITOR. BED ALARMS CONTINUES TO BE ON. CALL LIGHT WITHIN REACH.
--- NOTE | 2019-05-24 02:30 | NUR ---
PATIENT WITH HOB 30 DEGREES. NO ACUTE DISTRESS SHOWN. RESTS WITH EYES CLOSED. BED ALARM ON. CALL LIGHT WITHIN REACH. WILL CONTINUE TO MONITOR.
--- NOTE | 2019-05-24 04:00 | NUR ---
PATIENT RESTS WITH EYES CLOSED, AROUSES WITH PAINFUL STIMULI. HOB NEAR 30 DEGREES. SR ON TELEMETRY. NO ACUTE DISTRES SSHOWN. CALL LIGHT WITHIN REACH.
[2019-05-24 04:59] LABS: HEMATOCRIT 30.4 % (37.0-47.0); HEMOGLOBIN 10.1 g/dl (12.0-16.0); MEAN CELL VOLUME 83.3 fL CALC (80.0-100.0); MEAN CORPUSCULAR HGB 27.7 pG CALC (26.0-32.0); MEAN CORPUSCULAR HGB CONC 33.2 g/L CALC (32.0-36.0); RED BLOOD COUNT 3.65 mill/uL (4.20-5.60); RED CELL DISTRI WIDTH 14.1 % (11.5-15.5)
[2019-05-24 05:19] LABS: CREATININE 1.3 mg/dL (0.5-1.0)
[2019-05-24 05:25] LABS: POTASSIUM 4.5 mmol/l (3.5-5.1)
--- NOTE | 2019-05-24 06:30 | NUR ---
PATIENT RESTS WITH EYES CLOSED. NO ACUTE DISTRESS SHOWN. BEAR HUGGER IN PLACE. SR ON TELEMETRY. CALL LIGHT WITHIN REACH. WILL CONTINUE TO MONITOR.
--- NOTE | 2019-05-24 09:08 | NUR ---
DR FREITAS @BEDSIDE WITH PT/.
[2019-05-24] MEDS ORDERED: TRESIBA FL100 UNIT/M SC (09:10)
[2019-05-24] MEDS ORDERED: NOVOLOG FL100 UNIT/M SC (09:11)
[2019-05-24] MEDS ORDERED: AMLODIPINE BESYL5 MG PO (09:13)
--- NOTE | 2019-05-24 09:45 | NUR ---
PT ASSISTED UP TO BSC, THEN DRESSED, & IV DC'D. STANDING OUTSIDE AT NURSES STATION.
--- NOTE | 2019-05-24 09:55 | NUR ---
PTS EDUCATED ON DC INSTRUCTIONS INCLUDING NEW MEDICATION.
--- NOTE | 2019-05-24 10:11 | NUR ---
PT OUT THE DOOR WITH & MICROFABRICATION ENGINEER MANAGER, BY WC, IN STABLE CONDITION.
--- NOTE | 2019-05-24 10:29 | NUR ---
PT DC'D HOME WITHOUT RECVING INFORMATION ABOUT HOME HEALTH. CALLED PTS HOME & LEFT MESSAGE FOR THEM TO CALL ME BACK.
--- NOTE | 2019-05-24 11:54 | NUR ---
CALLED PTS SISTER, MICHAEL, TO TRY TO GET AHOLD OF PT & . SISTER WILL CONTACT MOM WHO WILL ASK TO CALL HOSPITAL. CM & DEPT HAND SPRAYER AWARE.
== END 2019-05-24 10:11 | disposition home health service (06) ==
LOC: ED 17:47 → ICU 20:36
PROVIDERS: Family Medicine; ADMIT Internal Medicine; ATTEND Internal Medicine
DX: E10.65 Type 1 diabetes mellitus with hyperglycemia (principal); E10.649 Type 1 diabetes mellitus with hypoglycemia without coma; I16.0 Hypertensive urgency; I12.9 Hypertensive chronic kidney disease with stage 1 through stage 4 chronic kidney disease, or unspecified chronic kidney disease; E10.22 Type 1 diabetes mellitus with diabetic chronic kidney disease; N18.3 Chronic kidney disease, stage 3 (moderate); E10.69 Type 1 diabetes mellitus with other specified complication; F03.90 Unspecified dementia, unspecified severity, without behavioral disturbance, psychotic disturbance, mood disturbance, and anxiety; M19.90 Unspecified osteoarthritis, unspecified site; E78.5 Hyperlipidemia, unspecified; Z79.4 Long term (current) use of insulin
CPT/HCPCS: J2060

== ENCOUNTER 2019-06-19 16:13 | Inpatient (IN) | payer MEDICARE ==
[~2019-06-19] VITALS: Ht 165.1 cm; Wt 74.3 kg
[~2019-06-19 16:13] MED LIST changes: +AMLODIPINE BESYL5 MG PO; +ATORVASTATIN CA40 MG PO; +FUROSEMIDE20 MG PO; +LOPRESSOR25 M1 PO; +NOVOLOG FL100 UNIT/M SC; +RAYALDEE30 MCG PO; +TRESIBA FL100 UNIT/M SC; +[UNRECOGNIZED DRUG - CODE]
[2019-06-20 04:00] VITALS: BP 133/78
--- NOTE | 2019-06-20 04:01 | NUR ---
LT. FOREARM IV DISCONTINUED AT THIS TIME. BANDAGE APPLIED, BLEEDING CONTROLLED, TIP INTACT. PT. ENCOURAGED TO REMAIN IN BED AT THIS TIME. BP/HR STABLE. RESPS REMAIN EVEN AND UNLABORED. AFEBRILE. BLOOD SUGAR NOW 242. WILL CONTINUE TO CLOSELY MONITOR.
[2019-06-20 04:17] LABS: HEMOGLOBIN 11.5 g/dl (12.0-16.0); IMMATURE GRANULOCYTES 0.4 % (0.0-5.0); MEAN CELL VOLUME 83.3 fL CALC (80.0-100.0); MEAN CORPUSCULAR HGB 27.4 pG CALC (26.0-32.0); MEAN CORPUSCULAR HGB CONC 32.9 g/L CALC (32.0-36.0); NEUT# 3.26 thou/uL (2.00-7.15); RED BLOOD COUNT 4.2 mill/uL (4.20-5.60); RED CELL DISTRI WIDTH 13.9 % (11.5-15.5)
[2019-06-20 04:49] LABS: ALKALINE PHOSPHATASE 104 u/l (38-126); ANION GAP 14 (6-22 (CALC)); BILIRUBIN, TOTAL 0.3 mg/dL (0.0-1.4); BUN 31 mg/dL (8-23); BUN/CREATININE RATIO 17 (12-20 (CALC)); CARBON DIOXIDE 27 mmol/l (22-30); CHLORIDE 101 mmol/l (95-108); CREATININE 1.9 mg/dL (0.5-1.0); GFR 27 ML/MIN (>=60 (CALC)); GFR FOR AFR.AMER. 32 ML/MIN (>=60 (CALC)); SGOT/AST 22 u/l (9-36); SODIUM 137 mmol/l (137-146)
[2019-06-20 05:59] VITALS: BP 155/73
[2019-06-20 06:53] LABS: HEMATOCRIT 34.7 % (37.0-47.0); HEMOGLOBIN 11.5 g/dl (12.0-16.0); MEAN CELL VOLUME 81.8 fL CALC (80.0-100.0); MEAN CORPUSCULAR HGB 27.1 pG CALC (26.0-32.0); MEAN CORPUSCULAR HGB CONC 33.1 g/L CALC (32.0-36.0); RED BLOOD COUNT 4.24 mill/uL (4.20-5.60); RED CELL DISTRI WIDTH 13.5 % (11.5-15.5)
--- NOTE | 2019-06-20 07:15 | NUR ---
PT OBSERVED SITTING UP IN BED. WHEN ASKED ABOUT INTENTIONS, PT STATES SHE WANTS TO GO BACK TO SLEEP. PT REDIRECTED BACK TO BED, COVERS OVER HEAD, APPEARS RESTFUL. BED ALARM SET.
[2019-06-20 07:32] LABS: CREATININE 1.7 mg/dL (0.5-1.0); POTASSIUM 4.8 mmol/l (3.5-5.1)
--- NOTE | 2019-06-20 07:44 | NUR ---
PT REFUSING BREAKFAST AT THIS TIME. TRAY KEPT IN ROOM FOR LATER. PTS INSULIN HELD UNTIL PT EATS.
[2019-06-20 08:00] VITALS: BP 167/80
--- NOTE | 2019-06-20 08:38 | NUR ---
DR FREITAS @BEDSIDE WITH PT & , ASSESSING PT & DISCUSSING POC.
--- NOTE | 2019-06-20 09:42 | NUR ---
PT TRYING TO GET OUT OF BED x2. BED ALARM RESET. PT REDIRECTED BACK TO BED. TURNED TV ON FOR PT, CALLBELL IN HANDS. DOORS/CURTAINS OPEN FOR BETTER OBSERVATION.
[2019-06-20 10:00] VITALS: BP 149/75
--- NOTE | 2019-06-20 11:00 | NUR ---
PT FREQUENTLY TRYING TO CLIMB OUT OF BED, REDIRECTED. BED ALARM SET.
--- NOTE | 2019-06-20 11:00 | NUR ---
SPOKE WITH ARIEL LARSEN, ABOUT POSSIBLE DC THIS AFTERNOON TO HOME HEALTH.
[2019-06-20 12:00] VITALS: BP 147/73
--- NOTE | 2019-06-20 14:12 | NUR ---
PT REFUSING TO KEEP MONITORING EQUIPMENT ON. PT SLEEPING AT THIS TIME.
--- NOTE | 2019-06-20 15:17 | NUR ---
PTS MOM @BEDSIDE, TUCKING PT IN BED, BRUSHING HER HAIR.
[2019-06-20 16:00] VITALS: BP 156/76
--- NOTE | 2019-06-20 17:21 | NUR ---
ARIEL BERMAN, NOTIFIED OF @BEDSIDES; STATES HE'LL "SEE THEM TOMORROW". SHOWED UP TO "TAKE HIS HOME"; VERY IMPATIENT.
--- NOTE | 2019-06-20 17:36 | NUR ---
PT SITTING ON SIDE OF BED, EATING DINNER. PLAYING WITH MONITORING EQUIPMENT.
--- NOTE | 2019-06-20 18:12 | NUR ---
STATES HE WANTS PT TO GO HOME. DR FREITAS'S OFFICE WILL SET UP HOME HEALTH TOMORROW.
--- NOTE | 2019-06-20 19:25 | NUR ---
Discharge instructions given. Patient verbalizes understanding of same. Discharged in stable condition via Wheelchair to Home with spouse. All belongings sent with pt. DISCHARGE INSTRUCTIONS EXPLAINED TO SPOUSE WELL. SPOUSE AGREES AND ALSO SIGNS DISCHARGE PAPERWORK. R SIDE CHEST PORT WAS FLUSHED ACCORDING TO PROTOCOL AND WAS DISCONTINUED, GAUZE AND DRESSING PLACED.
== END 2019-06-20 19:25 | disposition home or self-care (01) | DRG 638 ==
LOC: ED 18:00 → ICU 18:04
PROVIDERS: ADMIT Internal Medicine; ATTEND Internal Medicine
DX: E10.649 Type 1 diabetes mellitus with hypoglycemia without coma (principal); F03.91 Unspecified dementia, unspecified severity, with behavioral disturbance; E10.22 Type 1 diabetes mellitus with diabetic chronic kidney disease; I12.9 Hypertensive chronic kidney disease with stage 1 through stage 4 chronic kidney disease, or unspecified chronic kidney disease; N18.3 Chronic kidney disease, stage 3 (moderate); E78.5 Hyperlipidemia, unspecified; Z79.4 Long term (current) use of insulin
CPT/HCPCS: J2060; S0166

== ENCOUNTER 2019-11-10 | Emergency (ER) | payer MEDICARE ==
[2019-11-10 09:57] LABS: HEMATOCRIT 39.3 % (37.0-47.0); HEMOGLOBIN 12.1 g/dl (12.0-16.0); IMMATURE GRANULOCYTES 0.5 % (0.0-5.0); MEAN CORPUSCULAR HGB 27.6 pG CALC (26.0-32.0); MEAN CORPUSCULAR HGB CONC 30.8 g/dL CAL (32.0-36.0); NEUT# 7.11 thou/uL (2.00-7.15); RED BLOOD COUNT 4.38 mill/uL (4.20-5.60); RED CELL DISTRI WIDTH 14.8 % (11.5-15.5)
[2019-11-10 09:58] LABS: MEAN CELL VOLUME 89.7 fL CALC (80.0-100.0)
[2019-11-10 10:14] LABS: ALBUMIN 3.2 g/dL (3.2-5.0); BILIRUBIN, TOTAL 0.3 mg/dL (0.0-1.4); CREATININE 1.7 mg/dL (0.5-1.0); POTASSIUM 4.9 mmol/l (3.5-5.1); TOTAL PROTEIN 6.7 g/dL (6.3-8.2)
[2019-11-10 10:52] LABS: URINE BILIRUBIN - DIPSTICK NEGATIVE (NEGATIVE); URINE BLOOD DIPSTICK NEGATIVE (NEGATIVE); URINE COLOR YELLOW; URINE GLUCOSE - DIPSTICK 100 mg/dL (NEGATIVE); URINE KETONE NEGATIVE (NEGATIVE); URINE LEUK ESTERASE NEGATIVE (NEGATIVE); URINE NITRITE - DIPSTICK NEGATIVE (Negative); URINE PROTEIN - DIPSTICK 30 mg/dL (NEG-TRACE); URINE SPECIFIC GRAVITY 1.015; URINE UROBILINOGEN - DIPSTICK 0.2 E.U./dL (0.2)
[2019-11-10 11:01] LABS: URINE MUCUS FEW hpf (NONE-FEW); URINE SQUAMOUS EPITHELIAL CELL FEW EPI/hpf (0-FEW)
== END 2019-11-10 11:50 | disposition home or self-care (01) ==
PROVIDERS: Family Medicine
DX: E11.649 Type 2 diabetes mellitus with hypoglycemia without coma (principal); E11.22 Type 2 diabetes mellitus with diabetic chronic kidney disease; I12.9 Hypertensive chronic kidney disease with stage 1 through stage 4 chronic kidney disease, or unspecified chronic kidney disease; N18.9 Chronic kidney disease, unspecified; Z79.4 Long term (current) use of insulin

== ENCOUNTER 2020-03-03 14:59 | Emergency (ER) | payer MEDICARE ==
[~2020-03-03] VITALS: Ht 165.1 cm; Wt 57.9 kg
[2020-03-03 15:22] LABS: HEMATOCRIT 46.5 % (37.0-47.0); HEMOGLOBIN 14.6 g/dl (12.0-16.0); IMMATURE GRANULOCYTES 0.5 % (0.0-5.0); MEAN CELL VOLUME 84.7 fL CALC (80.0-100.0); MEAN CORPUSCULAR HGB 26.6 pG CALC (26.0-32.0); MEAN CORPUSCULAR HGB CONC 31.4 g/dL CAL (32.0-36.0); NEUT# 4.86 thou/uL (2.00-7.15); RED BLOOD COUNT 5.49 mill/uL (4.20-5.60); RED CELL DISTRI WIDTH 13.9 % (11.5-15.5)
[2020-03-03 15:38] LABS: ALBUMIN 3.8 g/dL (3.2-5.0); ALKALINE PHOSPHATASE 131 u/l (38-126); BUN 74 mg/dL (8-23); CARBON DIOXIDE 21 mmol/l (22-30); CHLORIDE 106 mmol/l (95-108); LIPASE 155 u/l (23-300); TOTAL PROTEIN 8.1 g/dL (6.3-8.2)
[2020-03-03 15:41] LABS: PROTHROMBIN TIME 10.4 SECONDS (9.0-12.5)
[2020-03-03 15:42] LABS: ANION GAP 23 (6-22 (CALC)); BILIRUBIN, TOTAL 0.6 mg/dL (0.0-1.4); BUN/CREATININE RATIO 12 (12-20 (CALC)); GFR 7 ML/MIN (>=60 (CALC)); GFR FOR AFR.AMER. 9 ML/MIN (>=60 (CALC)); POTASSIUM 5.7 mmol/l (3.5-5.1); SGOT/AST 65 u/l (9-36); SODIUM 144 mmol/l (137-146)
[2020-03-03 16:23] LABS: ETHYL ALCOHOL 0 mg/dl (0-30)
--- NOTE | 2020-03-03 16:29 | NUR ---
PT INTUBATED WITH 7.5 ET TUBE 23 @ LIP BY DR. MENDOZA ON FIRST ATTEMPT. TRANSPORTED PT TO CT WITH SHAW ZABALA AND SHAW WAYNE. BY AMBU BAG. PT PLACED ON VENT SETTINGS AC 450/16/100%/6
[2020-03-03 19:00] VITALS: BP 60/40
== END 2020-03-03 16:40 | disposition short-term general hospital (02) ==
LOC: ED 14:59
PROVIDERS: Student in an Organized Health Care Education/Training Program
PROC: 0BH17EZ Insertion of Endotracheal Airway into Trachea, Via Natural or Artificial Opening (ICD-10-PCS; principal; 2020-03-03)
PROC: 05HM33Z Insertion of Infusion Device into Right Internal Jugular Vein, Percutaneous Approach (ICD-10-PCS; 2020-03-03)
DX: G93.40 Encephalopathy, unspecified (principal); I26.99 Other pulmonary embolism without acute cor pulmonale; I46.9 Cardiac arrest, cause unspecified; I95.9 Hypotension, unspecified; F03.90 Unspecified dementia, unspecified severity, without behavioral disturbance, psychotic disturbance, mood disturbance, and anxiety; E11.22 Type 2 diabetes mellitus with diabetic chronic kidney disease; I12.9 Hypertensive chronic kidney disease with stage 1 through stage 4 chronic kidney disease, or unspecified chronic kidney disease; N18.9 Chronic kidney disease, unspecified; R40.2432 Glasgow coma scale score 3-8, at arrival to emergency department; Z79.4 Long term (current) use of insulin
CPT/HCPCS: J1644; Q9967

== ENCOUNTER 2020-05-15 06:24 | Inpatient (IN) | payer MEDICARE ==
[~2020-05-15] VITALS: Ht 165.1 cm; Wt 72.3 kg
[2020-05-15] VITALS (14 sets, daily range): BP systolic 113–198; BP diastolic 56–96
--- NOTE | 2020-05-15 06:24 | NUR ---
PATIENT TO ROOM 12 VIA EMS STRETCHER. TRIAGE COMPLETED FROM OLD MED RECORDS.
--- NOTE | 2020-05-15 07:15 | NUR ---
RECEIVED BEDSIDE REPORT. PT AWAKE AND ALERT AND BEING TAKING TO RADIOLOGY VIA STRETCHER PER ENGINE DISPATCHER
[2020-05-15 07:25] LABS: IMMATURE GRANULOCYTES 0.4 % (0.0-5.0); MEAN CELL VOLUME 84.3 fL CALC (80.0-100.0); MEAN CORPUSCULAR HGB 26.5 pG CALC (26.0-32.0); MEAN CORPUSCULAR HGB CONC 31.4 g/dL CAL (32.0-36.0); NEUT# 3.93 thou/uL (2.00-7.15); RED BLOOD COUNT 4.27 mill/uL (4.20-5.60); RED CELL DISTRI WIDTH 14.4 % (11.5-15.5)
[2020-05-15 07:26] LABS: HEMOGLOBIN 11.3 g/dl (12.0-16.0)
--- NOTE | 2020-05-15 07:28 | NUR ---
PT ALERT AND RESPOSIVE, CONFUSED, NOT ORIENTED TO PLACE OR TIME , ORIENTED ONLY TO HER OWN FIRST NAME.BS 175, EKG PERFORMED AND PUREWICK APPLIED FOR COMFORT AND URINE.EDP AT BEDSIDE TO ASSESS PT.
[2020-05-15 07:49] LABS: ACT PARTIAL THROMBO TIME 25.8 SECONDS (20.0-32.5); ALBUMIN 3.2 g/dL (3.2-5.0); ALKALINE PHOSPHATASE 107 u/l (38-126); ANION GAP 10 (6-22 (CALC)); BUN 18 mg/dL (8-23); BUN/CREATININE RATIO 10 (12-20 (CALC)); CARBON DIOXIDE 27 mmol/l (22-30); CHLORIDE 101 mmol/l (95-108); CREATININE 1.9 mg/dL (0.5-1.0); GFR 27 ML/MIN (>=60 (CALC)); GFR FOR AFR.AMER. 32 ML/MIN (>=60 (CALC)); LIPASE 114 u/l (23-300); POTASSIUM 4.7 mmol/l (3.5-5.1); SGOT/AST 17 u/l (9-36); SODIUM 134 mmol/l (137-146); TOTAL PROTEIN 6.3 g/dL (6.3-8.2)
[2020-05-15 07:50] LABS: BILIRUBIN, TOTAL 0.2 mg/dL (0.0-1.4)
[2020-05-15] MEDS ORDERED: ELIQUIS5 MG PO (08:01)
[2020-05-15] MEDS ORDERED: AMLODIPINE BESY10 MG PO (08:01)
[2020-05-15] MEDS ORDERED: QUETIAPINE FUMA25 MG PO (08:02)
[2020-05-15] MEDS ORDERED: METFORMIN500 M2 PO (08:02)
[2020-05-15] MEDS ORDERED: FUROSEMIDE20 MG PO (08:03)
--- NOTE | 2020-05-15 08:03 | NUR ---
RECEIVED CONSULT FOR [employer] REC ASSISTANCE, UPDATED MED LIST FROM CLAIMS HISTORY. WILL F/U IF PT IS ADMITTED
--- NOTE | 2020-05-15 08:15 | NUR ---
EXPLAINED STRAIGHT CATH TO PT AND SHE STATES UNDERSTANDING. PT IS CONFUSED. STRAIGHT CATH PERFORMED AND CLOUDY YELLOW URINE OBTAINED. PT TOLERATED WELL, PERICARE RENDERED AND PT SET UP FOR BREAKFAST TRAY
[2020-05-15 08:29] LABS: URINE BILIRUBIN - DIPSTICK NEGATIVE (NEGATIVE); URINE BLOOD DIPSTICK TRACE-INTACT (NEGATIVE); URINE COLOR YELLOW; URINE GLUCOSE - DIPSTICK 250 mg/dL (NEGATIVE); URINE KETONE NEGATIVE (NEGATIVE); URINE LEUK ESTERASE MODERATE (NEGATIVE); URINE PROTEIN - DIPSTICK TRACE mg/dL (NEG-TRACE); URINE SPECIFIC GRAVITY 1.015; URINE UROBILINOGEN - DIPSTICK 0.2 E.U./dL (0.2)
[2020-05-15 08:36] LABS: URINE NITRITE - DIPSTICK NEGATIVE (Negative)
[2020-05-15 08:43] LABS: URINE BACTERIA MANY hpf; URINE EPITHELIAL CELLS MODERATE EPI/hpf (0-FEW); URINE RBC 0-2 RBC/hpf (0-5); URINE WBC 50-100 WBC/hpf (0-5)
[2020-05-15 08:44] LABS: URINE YEAST MODERATE hpf
--- NOTE | 2020-05-15 09:15 | NUR ---
PT COMPLETED 100% OF BREAKFAST TRATY. ALERT AND COOPERATIVE. UPDATED ON WAIT TIME. VSS
--- NOTE | 2020-05-15 09:55 | NUR ---
PTS AUNT SAMM AT BEDSIDE AND UPDATED ON ADMIT AND POC
--- NOTE | 2020-05-15 10:35 | NUR ---
NOTED INCREASE IN HR TO 145. PT TREMULOUS, HR AUSCULTATED AND CONFIRMED HR 145. PT NOT GOOD HISTORIAN AND UNABLE TO RELATE ANY SIGNIFICANT PAIN. REPEAT EKG PERFORMED.
--- NOTE | 2020-05-15 10:41 | NUR ---
REPEAT EKG AND CALLED [employer] SALES TRAINING REPRESENTATIVE TO UPDATE ON PTS CONDITION
--- NOTE | 2020-05-15 11:15 | NUR ---
TOLERATING IVF BOLUS WELL. VSS. HR 138. PT ALERT ADN DISORIENTED BUT COOPERATIVE.
--- NOTE | 2020-05-15 11:58 | NUR ---
PT TO ICU BED 1 VIA STRETCHER. PT A MAX ASSIST TO TRANSFER TO BED X3. PT IS ALERT HOWEVER NOT ORIENTED. WHEN ASKED NAME PT SAYS YES MA'AM. AND SAME WITH PLACE AND TIME. PT IS ST 130-140 ON MONITOR. ADMISSION ASSESSMENT COMPLETED AT THIS TIME. HISTORY LIMITED DUE TO DEMENTIA. CALL LIGHT IN REACH. BED ALARM IN PLACE FOR PT SAFETY. WILL CONTINUE TO MONITOR CLOSELY.
--- NOTE | 2020-05-15 11:59 | NUR ---
PT TRANSPORTED TO ICU ON SHEET PILE HAMMER OPERATOR IN NO DISTRESS
--- NOTE | 2020-05-15 12:15 | NUR ---
D MARIA VICTORIA BALDERAS NOTIFED THAT PT IS ALERT HOWEVER NOT ORIENTED TO SELF, PLACE OR TIME.
--- NOTE | 2020-05-15 12:21 | NUR ---
O2 SATS 85% ON ROOM AIR. NOT A GOOD WAVEFORM. CHANGED O2 SENSOR. WAVE FORM REMAINS UNCHANGED. RT AT BEDSIDE FOR STAT ABG.
--- NOTE | 2020-05-15 12:30 | NUR ---
PT COMBATIVE AND UNABLE TO OBTAIN ABG. WILL CONTINUE TO MONITOR O2 SATS AND RESP PATTERN.
--- NOTE | 2020-05-15 13:15 | NUR ---
SET PT UP FOR LUNCH. PT WAS NOT ABLE TO FEED SELF. ASSISTED PT WITH EATING. PT CHEWS FOOD BUT DOES NOT SWALLOW. TRIED TO GIVE DRINK PT HOLDS LIQUID WELL.
[2020-05-15] MEDS ORDERED: NOVOLOG FL100 UNIT/M (13:19)
[2020-05-15] MEDS ORDERED: TRESIBA FL200 UNIT/M (13:19)
--- NOTE | 2020-05-15 13:40 | NUR ---
NOTIFIED Ashish BALDERAS OF INABILITY TO FEED SEFL AND NOT SWALLOWING FOOD.
--- NOTE | 2020-05-15 13:57 | NUR ---
CHECKED BLOOD SUGAR. ACCUCHECK 201
--- NOTE | 2020-05-15 14:45 | NUR ---
Ashish IRENE ON UNIT TO SEE PATIENT.
--- NOTE | 2020-05-15 15:23 | NUR ---
PT RESTING IN BED WATCHING TV. ASSESSMENT REMAINS UNCHANGED. BED ALARM SET FOR PT SAFETY. CALL LIGHT IN REACH. WILL CONTINUE TO MONITOR.
--- NOTE | 2020-05-15 16:54 | NUR ---
PT RESTING IN BED WATCHING TV. RESP ARE EVEN AND UNLABORED. NO DISTRESS NOTED. CALL LIGHT IN REACH. WILL CONTINUE TO MONITOR.
--- NOTE | 2020-05-15 17:20 | NUR ---
PT GIVEN COMPLETE BED BATH AND LINEN CHANGE. PT NOTED TO HAVE LARGE URINARY INCONTINENCE. PT GAVE VERBAL CONSENT FOR OJEDA TO BE PLACED. OJEDA PLACED USING STERILE TECHNIQUE WITH IMMEDIATE RETURN OF SEVERELY CLOUDY LIGHT COLORED URINE. PT TOLERATED WELL. CALL LIGHT IN REACH. WILL CONTINUE TO MNITOR.
--- NOTE | 2020-05-15 17:36 | NUR ---
ACCUCHECK 188. PT SET UP FOR PM MEAL AND IS FEEDING SELF SLOWLY. WILL CONTINUE TO MONITOR.
--- NOTE | 2020-05-15 18:09 | NUR ---
PT HAS ATE MINIMAL LOF DINNER TRAY. PT NEEDING MULTIPLE REMINDERS. PT CHEWING ON BLANKETS.
--- NOTE | 2020-05-15 19:00 | NUR ---
RECEIVED REPORT FROM AM SHIFT. PATIENT IN BED. APPEARS COMFORTABLE. PATIENTS VITALS STABLE. WILL CONTINUE TO MONITOR.
--- NOTE | 2020-05-15 20:00 | NUR ---
ASSESSMENT COMPLETED. PATIENT ONLY ALERT TO SELF. OJEDA IN PLACE. PORT IN RIGHT CHEST, PERIPHERAL IV IN LEFT ARM. PATIENT INCONTINENT OF STOOL, PATIENT CLEANED UP. PATIENT SKIN INTACT. SWELLING IN BILATERAL ANKLES. PATIENT WITH TEDS HOSE IN PLACE. PATIENT ROOM AIR. VITALS STABLE. WILL CONTINUE TO MONITOR. PATIENT ENCOURAGED TO DRINK ENSURE.
--- NOTE | 2020-05-15 22:00 | NUR ---
PATIENT CONTINUES TO BE ONLY ALERT TO SELF. PATIENT WITH NO SIGNS OF DISTRESS. FLUIDS INFUSING PER ORDER. PATIENT WITH NO COMPLAINTS. OJEDA WITH CLOUDY URINE. PATIENT CONTINUES TO REST IN BED. PATIENT TURNED AND REPOSITIONED. FLUIDS CONTINUES TO INFUSE. WILL CONTINUE TO MONITOR.
[2020-05-16] VITALS (17 sets, daily range): BP systolic 110–190; BP diastolic 54–81
--- NOTE | 2020-05-16 | NUR ---
PATIENT ROUNDED ON. PATIENT INCONTINENT OF STOOL. PATIENT CLEANED UP. PATIENT HEART RATE NOW >120'S. PATIENT APPEARS ANXIOUS. SEROQUEL ADMINISTERED EARLIER WITH NO AFFECT. PATIENT REASSURED. WILL DECREASE STIMULATION. WILL CONTINUE TO MONITOR.
--- NOTE | 2020-05-16 01:10 | NUR ---
CALL PLACED TO DR WALLS TO NOTIFY OF PATIENTS ELEVATED HR. PATIENT REMAINS IN THE 120'S. PATIENT CURRENTLY IN BED. SYSTOLIC BLOOD PRESSURE 140'S. PATIENT AFEBRILE. ORDER RECEIVED FOR METOPROLOL 5MG IV. WILL CONTINUE TO MONITOR.
--- NOTE | 2020-05-16 02:00 | NUR ---
PATIENT RESTING. VITAL STABLE. HR NOW IN THE LOW 100'S. PATIENT DOES NOT APPEAR TO BE IN DISTRESS. WILL CONTINUE TO MONITOR.
--- NOTE | 2020-05-16 04:00 | NUR ---
PATIENT ROUNDED ON. PATIENT SLEEPING. PATIENT OJEDA WITH GOOD OUTPUT. FLUIDS CONTINUE TO INFUSE THROUGH PORT. PERIPHERAL IV DC'D DUE TO PAIN. PATIENT HR REMAINS IN THE 90-100. PATIENT WITH DISCOMFORT. TYLENOL GIVEN. WILL CONTINUE TO MONITOR.
--- NOTE | 2020-05-16 06:20 | NUR ---
PATIENT SLEEPING. PATIENT HR CONTINUES IN THE 90'S. PATIENT DOES NOT APPEAR TO BE IN DISTRESS. PATIENT CONTINUES TO ONLY BE ALERT TO SELF. VITAL STABLE. WILL CONTINUE TO MONITOR.
--- NOTE | 2020-05-16 06:45 | NUR ---
REPORT RECEIVED FROM TATYANA SQUIRES. CARE ASSUMED.
--- NOTE | 2020-05-16 07:25 | NUR ---
PT RESTING IN BED WITH EYES CLOSED. PT IS ALERT AFTER PAINFUL STIMULI. PT IS NOT ORIENTED AT THIS TIME. SHIFT ASSESSMENT COMPLETED AT THIS TIME. IV PATENT X1. ACCU CHECK 218. CALL LIGHT IN REACH. WILL CONTINUE TO MONITOR.
[2020-05-16 07:53] LABS: IMMATURE GRANULOCYTES 0.6 % (0.0-5.0); MEAN CORPUSCULAR HGB 26.6 pG CALC (26.0-32.0); MEAN CORPUSCULAR HGB CONC 31.7 g/dL CAL (32.0-36.0); NEUT# 9.87 thou/uL (2.00-7.15); RED BLOOD COUNT 3.38 mill/uL (4.20-5.60); RED CELL DISTRI WIDTH 14.3 % (11.5-15.5)
[2020-05-16 07:55] LABS: HEMATOCRIT 28.4 % (37.0-47.0)
--- NOTE | 2020-05-16 07:57 | NUR ---
PRELIMINARY CULTURE RESULTS CALLED TO NIMESH HAHN. 4 VIALS GROWING GRAM (-) RODS. WILL MAKE ROCEPHIN 2GM DAILY
--- NOTE | 2020-05-16 08:10 | NUR ---
DR LUO AT BEDSIDE.
[2020-05-16 08:16] LABS: BILIRUBIN, TOTAL 0.2 mg/dL (0.0-1.4); CREATININE 1.5 mg/dL (0.5-1.0); POTASSIUM 4.7 mmol/l (3.5-5.1)
[2020-05-16 08:21] LABS: ALBUMIN 2.3 g/dL (3.2-5.0); TOTAL PROTEIN 4.8 g/dL (6.3-8.2)
--- NOTE | 2020-05-16 09:37 | NUR ---
COVID SWAB NEGATIVE. FAMILY NOTIFIED THAT THEY WILL BE ABLE TO VISIT. PRECAUTIONS REMOVED AT THIS TIME. PT GIVEN PO MEDS CRUSHED IN APPLE SAUCE. PT STILL HAVING TROUBLES WITH PO INTAKE. PT HAS TO BE REMINDED MULTIPLE TIMES TO SWALLOW.
--- NOTE | 2020-05-16 11:27 | NUR ---
PT ASSISTED UP TO RECLINER. ACCUCHECK 176. WILL HOLD ON INSULIN TO ENSURE PT IS ABLE TO EAT. PT HAD A SMALL LOOSE BM. PT CLEANSED AND LINENS CHANGED. CALL LIGHT IN REACH. WILL CONTINUE TO MONITOR.
--- NOTE | 2020-05-16 12:10 | NUR ---
awake in recliner; no apparent distress noted; pt able to demonstrate feeding herself to this field underwriter; iv/ port intact and patent; no redness or edema noted at site; st on monitor; lauren to gravity; call light within reach; will continue to monitor
--- NOTE | 2020-05-16 14:17 | NUR ---
PT SITTING UP IN CHAIR. ENSURE PROVIDED. ICE CREAM PROVIDED FOR SNACK. PT THANKFUL. CALL LIGHT IN REACH. WILL CONTINUE TO MONITOR.
--- NOTE | 2020-05-16 14:34 | NUR ---
AUNT SAMM AT BEDSIDE WITH PATIENT.
--- NOTE | 2020-05-16 16:02 | NUR ---
PT SITTING UP IN CHAIR WATCHING TV. RESP ARE EVEN AND UNLABORED. NO DISTRESS NOTED. CALL LIGHT IN REACH. WILL CONTINUE TO MONITOR.
--- NOTE | 2020-05-16 17:45 | NUR ---
PT SITTING UP IN CHAIR FOR PM MEAL. PT BUTTERING THE CONDIMENTS AND DEMANDING TO EAT THOSE. CONDIMENTS AND HAND WIPES REMOVED FROM TRAY. EXPLAINED THAT THEY ARE CONDIMENTS. PT PICKS AT FOOD AND NEEDS REMINDING TO SWALLOW FOOD. WILL CONTINUE TO MONITOR CLOSELY.
--- NOTE | 2020-05-16 18:01 | NUR ---
PT ATTEMPTING TO GET OUT OF CHAIR. REORIENTATION ATTMPTED AND UNSUCCESSFUL
--- NOTE | 2020-05-16 18:13 | NUR ---
PT DID NOT WANT DINNER PROVIDED. TURKEY SANDWICH PROVIDED AND PUDDING WITH ENSURE.
--- NOTE | 2020-05-16 18:22 | NUR ---
PT ASSISTED BACK TO BED. PT REMAINS DISORIENTED AT THIS TIME. WILL CONTINUE TO MONITOR.
--- NOTE | 2020-05-16 19:15 | NUR ---
PT AWAKE AND ALERT, PULLING AT B/P CUFF AND OJEDA. PT CONFUSED, FOLLOWS COMMANDS. ASSISTED PT LEGS BACK IN BED. NEW OJEDA STRAP APPLIED. CALL ORNELAS IN REACH. PT IN VIEW OF [facility] STATION.
--- NOTE | 2020-05-16 20:00 | NUR ---
PT REMAINS CONFUSED, FOLLOWS DIRECTIONS. NO DISTRESS NOTED. CALL ORNELAS IN REACH.
--- NOTE | 2020-05-16 22:12 | NUR ---
PT LYING QUIETLY IN BED. AWAKE AND ALERT. NO DISTRESS NOTED. CALL ORNELAS IN REACH.
[2020-05-17] VITALS (8 sets, daily range): BP systolic 128–179; BP diastolic 70–87
--- NOTE | 2020-05-17 | NUR ---
PT WITH EYS CLOSED, OPENED WHEN RN ENTERING ROOM. PT WITH NO DISTRESS OR NEEDS AT THIS TIME. CALL ORNELAS IN REACH.
--- NOTE | 2020-05-17 02:00 | NUR ---
PT AWAKE AND ALERT, NO COMPLAINTS OR NEEDS AT THIS TIME. CALL ORNELAS IN REACH.
--- NOTE | 2020-05-17 04:00 | NUR ---
PT WITH EYES CLOSED, NO DISTRESS NOTED. CALL ORNELAS IN REACH.
[2020-05-17 04:50] LABS: HEMATOCRIT 33.2 % (37.0-47.0); HEMOGLOBIN 10.4 g/dl (12.0-16.0); IMMATURE GRANULOCYTES 0.5 % (0.0-5.0); MEAN CELL VOLUME 83.2 fL CALC (80.0-100.0); MEAN CORPUSCULAR HGB 26.1 pG CALC (26.0-32.0); MEAN CORPUSCULAR HGB CONC 31.3 g/dL CAL (32.0-36.0); NEUT# 5.49 thou/uL (2.00-7.15); RED BLOOD COUNT 3.99 mill/uL (4.20-5.60); RED CELL DISTRI WIDTH 14.3 % (11.5-15.5)
[2020-05-17 05:20] LABS: CREATININE 1.3 mg/dL (0.5-1.0); POTASSIUM 4.5 mmol/l (3.5-5.1)
--- NOTE | 2020-05-17 06:00 | NUR ---
PT WITH EYES CLOSED, NO DISTRESS NOTED. CALL ORNELAS IN REACH.
--- NOTE | 2020-05-17 11:02 | NUR ---
PATIENT ALERT TO PERSON, CONFUSED, REQUIRES REORIENTATION TO PLACE AND TIME POOR APPETITE, REQUIRED FEEDING. ALSO CAME AND FED PATIENT THIS MORNING. INCONTINENT OF STOOL, CATHETER INTACT, DRAINING CLEAR YELLOW URINE. BED ALARM ON.
--- NOTE | 2020-05-17 18:18 | NUR ---
THIS MORNING DR LUO ORDERED THAT PATIENT COULD BE TRANFERRED TO MED-SURG. 173 REPORT GIVEN TO MONO. BEFORE PATIENT WAS TRANFERRED MEAL WAS GIVEN. 1814 PATIENT TRANSFRRED VIA BED.
--- NOTE | 2020-05-17 18:26 | NUR ---
HAND OFF REPORT RECEIVED FROM SOFIAICU NURSE. PT IN ROOM 260. PT ORIENTED TO ROOM, CALL LIGHT, TV REMOTE. BED IN LOWEST POSITION, BED ALARM ON. PT IS CLOSE TO NURSING STATION. LOCKER OPERATOR WILL CONTINUE TO MONITOR
--- NOTE | 2020-05-17 20:00 | NUR ---
PATIENT ALERT, VERBAL WITH CONFUSION, ABLE TO MAKE NEEDS KNOWN--TOLERATES MEDS WELL WHOLE. RIGHT CHEST PORT PATENT--DRSG C/D/I--FLUSHES WELL--SITE UNREMARKABLE. NS INFUSING AT 80ML/HR WITHOUT DIFFICULTY--TOLERATING FLUIDS WELL--ALSO RECEIVING IV ABT THERAPY RELATED TO UTI WITH NO SIDE EFFECTS NOTED THUS FAR--AFEBRILE. FSBS ORDERED WITH SSI PRN--LAST BS @HS-384--RECEIVED SSI ORDERED. OJEDA PATENT AND DRAINING CLEAR YELLOW URINE TO BSB WITHOUT DIFFICULTY. INC OF BOWEL WITH CARE PROVIDED PRN. OUT OF BED DAILY AD LORENE WITH MAX ASSIST. DENIES PAIN OR DISCOMFORT. LS DIMINSHED IN THE BASES--NO COUGH OR CONGESTION NOTED. CONT TO HAVE SLIGHT RIGHT SIDED WEAKNESS. T & P Q 2 HOURS. WILL CONT TO MONITOR FOR ANY FURTHER CHANGES.
--- NOTE | 2020-05-18 | NUR ---
PATIENT RESTING SOUNDLY IN BED WITH EYES CLOSED AT THIS TIME. RECEIVED IV ABT THERAPY RELATED TO UTI WITH NO SIDE EFFECTS NOTED--AFEBRILE. RIGHT CHEST PORT PATENT--FLUSHES WELL--SITE UNREMARKABLE--NS INFUSING @ 80ML/HR WITHOUT DIFFICULTY--TOLERATING FLUIDS WELL. NO S/S OF GLYCEMIC REACTION NOTED. WILL CONT TO MONITOR FOR ANY FURTHER CHANGES.
[2020-05-18 04:00] VITALS: BP 162/91
--- NOTE | 2020-05-18 04:00 | NUR ---
PATIENT CONTINUES TO REST SOUNDLY IN BED WITH EYES CLOSED AT THIS TIME.NO PROBLEMS WITH PIV SITE--PATENT--FLUSHES WELL--SITE UNREMARKABLE--NS INFUSING @ 80ML/HR WITHOUT DIFFICULTY--TOLERATING FLUIDS WELL. WILL CONT TO MONITOR FOR ANY FURTHER CHANGES.
[2020-05-18 05:10] LABS: HEMOGLOBIN 9.2 g/dl (12.0-16.0); IMMATURE GRANULOCYTES 0.4 % (0.0-5.0); MEAN CELL VOLUME 83.8 fL CALC (80.0-100.0); MEAN CORPUSCULAR HGB 26.6 pG CALC (26.0-32.0); MEAN CORPUSCULAR HGB CONC 31.7 g/dL CAL (32.0-36.0); NEUT# 3.65 thou/uL (2.00-7.15); RED BLOOD COUNT 3.46 mill/uL (4.20-5.60); RED CELL DISTRI WIDTH 14.4 % (11.5-15.5)
[2020-05-18 05:19] LABS: CREATININE 1.2 mg/dL (0.5-1.0); POTASSIUM 4.2 mmol/l (3.5-5.1)
[2020-05-18 07:12] VITALS: BP 159/82
--- NOTE | 2020-05-18 07:12 | NUR ---
PT RESTING IN BED, VERY DROWSY. AROUSED TO VERBAL STIMULI, PT PLEASANT ALERT BUT CONFUSED. OBEYS SIMPLE COMMANDS, DISCUSSED POC, PT RESPONDS,"OK, BABY". RESP EVEN AND UNLABORED. VITALS OBTAINED, SKIN INTACT. OJEDA DRAINING TO GRAVITY, ASSESSMENT COMPLETED, CALL LIGHT IN REACH,CONTINUE TO MONITOR.
--- NOTE | 2020-05-18 09:13 | NUR ---
PT RESTING IN BED, AWAKE WATCHING TV, DISCUSSED MEDICATIONS, PT VOICES NO NEEDS OR COMPLAINTS AT THIS TIME. PT TOLRERATED WELL. CALL LIGHT IN REACH,CONTINUE TO MONITOR.
--- NOTE | 2020-05-18 11:55 | NUR ---
PT RESTING IN BED FEEDING HERSELF, CALL LIGHT IN REACH,CONTINUE TO MONITOR.
--- NOTE | 2020-05-18 15:37 | NUR ---
PT RESTING IN BED, NO SIGNS OF DISTRESS NOTED,RESP EVEN AND UNLABORED. BED ALARM FOR SAFETY, CALLL IGHT IN REACH,CONTINUE TO MONITOR.
[2020-05-18 16:00] VITALS: BP 165/90
--- NOTE | 2020-05-18 16:35 | NUR ---
INFORMED BLOOD COLLECTOR OF BLOOD SUGAR 479, PT RESTING IN BED, CALL LIGHT IN REACH,CONTINUE TO MONITOR.
[2020-05-18 18:25] VITALS: BP 149/82
[2020-05-18 19:30] VITALS: BP 169/86
--- NOTE | 2020-05-18 20:00 | NUR ---
PATIENT ALERT, VERBAL WITH CONFUSION, ABLE TO MAKE NEEDS KNOWN--ABLE TO TOLERATE MEDS WELL WHOLE. FSBS @ HS--554-- NOTIFIED--NEW ORDERS TO GIVE 12U NOVOLOG TIMES 1 NOW, LEVEMIR 15U Q HS AND RECHECK BS AT MIDNIGHT TO MAKE SURE SHES NOT HYPOGLYCEMIC. RIGHT CHEST PORT PATENT--FLUSHES WELL--SITE UNREMARKABLE--DRGS C/D/I. CONT ON IV ABT THERAPY RELATED TO UTI WITH NO SIDE EFFECTS NOTED--AFEBRILE. NS INFUSING @ 80ML/HR WITHOUT DIFFICULTY--TOLERATING FLUIDS WELL. OJEDA PATENT AND DRAINING CLEAR YELLOW URINE TO BSB WITHOUT DIFFICULTY--INC OF BOWEL--CARE PROVIDED PRN. MAX ASSIST WITH ALL ADLS AND TRANSFERS. DEPENDENT DINER WITH POOR APPETITE. TURNED AND REPOSITIONED Q [address] TO PREVENT DVT--COMPLIANT WITH APPLICATION. NO APPARENT PAIN OR DISCOMFORT NOTED OR VOICED. WILL CONT TO MONITOR FOR ANY FURTHER CHANGES.
--- NOTE | 2020-05-19 | NUR ---
PATIENT RESTING SOUNDLY IN BED WITH EYES CLOSED AT THIS TIME--RECEIVED IV ABT THERAPY RELATED TO UTI ORDERED WITH NO SIDE EFFECTS NOTED--AFEBRILE. RIGHT CHEST PORT PATENT--FLUSHES WELL--SITE UNREMARKABLE--DRSG C/D/I. OJEDA PATENT AND DRAINING CLEAR YELLOW URINE TO BSB WITHOUT DIFFICULTY. RECHECK OF BS FROM EARLIER--308. NO APPARENT PAIN OR DISCOMFORT NOTED OR VOICED. WILL CONT TO MONITOR FOR ANY FURTHER CHANGES.
[2020-05-19 04:00] VITALS: BP 150/81
--- NOTE | 2020-05-19 04:00 | NUR ---
PATIENT CONTINUES TO REST SOUNDLY IN BED WITH EYES CLOSED AT THIS TIME. OJEDA REMAINS PATENT AND DRAINING CLEAR YELLOW URINE TO BSB WITHOUT DIFFICULTY. TURNED AND REPOSITIONED Q 2 HOURS. RIGHT CHEST PORT REMAINS PATENT--DRSG C/D/I. NS INFUSING @ 80ML/HR WITHOUT DIFFICULTY--TOLERATING FLUIDS WELL. WILL CONT TO MONITOR FOR ANY FURTHER CHANGES.
[2020-05-19 07:30] VITALS: BP 154/87
--- NOTE | 2020-05-19 07:30 | NUR ---
PATIENT BLOOD GULCOSE 197 AND WAS COVERED WITH 1 UNIT. PATIENT ALERT TO NAME AND IS COOPERATIVE ON COMMANDS. PATIENT DOES EXHIBT SOME RIGHT SIDE UPPER EXTREM. WEEKNESS DUE TO PAST CVA BUT DOES NOT HIT BED. PATIENT DENIES ANY PAIN AT THIS TIME AND ALL SAFTERY MEASURES ARE IN PLACE. OJEDA CATH IS IN PLACE AND IS DRAINING CLEAR YELLOW URINE AT THIS TIME. PATIENT ASSESMENT DONE SEE ASSESSEMENT INTERVENTIONS:
--- NOTE | 2020-05-19 08:20 | NUR ---
AT BEDSIDE DISCUSSING POC WITH PT.
--- NOTE | 2020-05-19 08:28 | NUR ---
IN TO SEE PATIENT AT THIS TIME AND DISCUSSED PLANS FOR DISCHARGE TODAY. PATIENT DID VERBALIZE UNDERSTANDING.
--- NOTE | 2020-05-19 11:35 | NUR ---
PATIENT LYING IN BED EYES OPEN RESPIRATION EASY AND UNLABORED. PATIENT ALERT TO SELF AT THIS TIME. PATIENT ACCU CHECK SHOWS 268 AND PATIENT COVERED WITH 3 UNITS OF NOVOLOG TOLERATED WELL. PATIENT DENIES OTHER NEEDS AT THIS TIME.
[2020-05-19 15:00] VITALS: BP 148/86
--- NOTE | 2020-05-19 15:33 | NUR ---
PATIENT IN BED ALERT TO SELF WATCHING TV AT THIS TIME RESPIRATIONS EVEN AND UNLABORED. ALL SAFETY MEASURES ARE IN PLACE. PATIENT EDUCATED ON OJEDA CATH REMOVAL AT THIS TIME. 10CC OJEDA CATH BALLOON DEFLATED AT THIS TIME AND OJEDA CATH REMOVED WITHOUT ANY ISSUES. OJEDA CATH INTACT AND 1100 CC EMPTIED FROM OJEDA BAG. PATIENT WAS PROVIDED [facility] AND REPOSITIONED IN BED AT THIS TIME. PATIENT DENIES ANY OTHER NEEDS AT THIS TIME.
[2020-05-19] MEDS ORDERED: CIPROFLOXACN500 MG PO (15:51)
[2020-05-19] MEDS ORDERED: LEVEMIR100 UNIT/M SC (15:51)
[2020-05-19] MEDS ORDERED: LOPRESSOR 550 MG/TAB PO (15:51)
[2020-05-19] MEDS ORDERED: NOVOLOG100 UNIT/M SC (15:51)
[2020-05-19 15:52] VITALS: BP 148/86
--- NOTE | 2020-05-19 17:06 | NUR ---
PATIENT GIVEN 1 UNIT OF SLIDING SCALE NOVOLOG FOR A ACCU CHECK OF 185. PATIENT TOLERATED INJECTION WITHOUT COMPLAINT. FAMILY AT BEDSIDE.
[2020-05-19 19:00] VITALS: BP 153/81
--- NOTE | 2020-05-19 19:18 | NUR ---
RECIVED RFEPORT FROM NURSE WENDY, PATIENT SITING IN BED, WATCHING TV, DENIES PAIN OR DISCOMFORTS AT THIS TIME, CALL LIGHT AT REACH. BED ALARM IN PLACE.
--- NOTE | 2020-05-19 21:13 | NUR ---
PATIENT ALERT INAPPROPRIATE, UNABLE TO STATE NAME BIRTHDAY, INAPPRPRIATE ANSWER, WITH ONGOING NS @ 80CC/HR INFUSING WELL ON RUC, NO DISCOMFORTS NOTED, INCONTINENT BRIEF WET, INCONTINET CARE PROVIDED, BREATHING EVEN UNLABORED, CALL LIGHT AT REACH.
--- NOTE | 2020-05-20 00:20 | NUR ---
PATIENT APPEARS TO BE SLEEPING WITH EYE CLOSED, BREATHING EVEN UNLABORED CALL LIGHT AT REACH.
[2020-05-20 03:23] VITALS: BP 161/90
--- NOTE | 2020-05-20 03:32 | NUR ---
PATIENT RESTING IN BED, EYES CLOSED, BREATHING EVEN UNLABORED, CALL LIGHT AT REACH, BED ALARM IN PLACE.
--- NOTE | 2020-05-20 05:49 | NUR ---
INCONTINENT CARE PROVIDED AT THIS TIME, WENT BACK TO SLEEP AFTER CARE IS DONE.
[2020-05-20 06:30] VITALS: BP 156/84
--- NOTE | 2020-05-20 07:00 | NUR ---
REPORT RECEIVED FROM SHAW GR;PT APPEARS TO BE SLEEPING IN SEMI FOWLERS POSITION;NO S/S OF DISTRESS NOTED;RESPIRATIONS EVEN AND UNLABORED ON RA;IV FLUIDS INFUSING WITH EASE PER ORDER;ALL SAFETY PRECAUTIONS IN PLACE WITH BED IN THE LOWEST POSITION AND BED ALARM ON FOR SAFETY;CALL LIGHT IN REACH;WILL CONTINUE TO MONITOR
--- NOTE | 2020-05-20 07:40 | NUR ---
PT RESTING IN SEMI FOWLERS POSITION,A&O TO SELF ONLY;VS OBTAINED AND ASSESSMENT COMPLETED;PT DENIES ANY CURRENT PAIN OR DISCOMFORTS,PAIN SCALE AND REPORTING EDUCATED;RESPIRATIONS EVEN AND UNLABORED ON RA,CLEAR LUNG SOUNDS;ABDOMEN SOFT ON PALPATION AND ACTIVE IN ALL 4 QUADRANTS;STRONG PEDAL PULSES;SKIN INTACT;ACCUCHECK 168, PT COVERED WITH SLIDING SCALE NOVOLOG PER ORDER;RT UPPER CHEST PORT INFUSING NS @ 80ML/HR,SITE APPEARS HEALTHY;PT DENIES ANY ADDITIONAL NEEDS AT THIS TIME AND IS ENCOURAGED TO CALL FOR ASSISTANCE IF NEEDED;FALL PRECAUTIONS IN PLACE WITH BED IN THE LOWEST POSITION AND BED ALARM ON FOR SAFETY;CALL LIGHT IN REACH;WILL CONTINUE TO MONITOR
[2020-05-20 07:43] VITALS: BP 158/72
[2020-05-20 08:26] VITALS: BP 158/72
--- NOTE | 2020-05-20 10:30 | NUR ---
RESP PANEL OBTAINED AT THIS TIME PER ORDER,PT TOLERATED WELL.SPECIMEN SENT TO LAB.
--- NOTE | 2020-05-20 11:10 | NUR ---
PT RESTING IN SEMI FOWLERS POSITION;RESPIRATIONS EVEN AND UNLABORED ON RA;PT DENIES ANY CURRENT PAIN OR DISCOMFORTS;IV FLUIDS CONTINUE TO INFUSE WITH EASE PER ORDER TO RT CHEST PORT,ABX HUNG AT THIS TIME;ACCUCHECK 329,PT COVERED WITH SLIDING SCALE NOVOLOG PER ORDER;PT DENIES ANY ADDITIONAL NEEDS AT THIS TIME AND IS ENCOURAGED TO CALL FOR ASSISTANCE IF NEEDED;FALL PRECAUTIONS REMAIN IN PLACE WITH BED IN THE LOWEST POSITION AND BED ALARM ON FOR SAFETY;CALL LIGHT IN REACH;WILL CONTINUE TO MONITOR
--- NOTE | 2020-05-20 14:51 | NUR ---
PATIENT RIGHT UPPER CHEST POWER PORT DEACCESSED AT THIS TIME UNDER ASCEPTIC TECHINQUE. POWER PORT SITE SHOWS NO S/S OF SITE INFECTION AND WAS COVERED WITH A BIO-PATCH AND OP-SITE AT THIS TIME. PATIENT TOLERATED DEACCESSING PROCEDURE WITHOUT ANY COMPLAINTS.
--- NOTE | 2020-05-20 15:30 | NUR ---
REPORT CALLED TO GHANSHYAM NIETO AT [facility].
--- NOTE | 2020-05-20 15:33 | NUR ---
PT APPEARS TO BE SLEEPING IN SEMI FOWLERS POSITION;NO S/S OF DISTRESS NOTED;RESPIRATIONS EVEN AND UNLABORED ON RA;AWAITING TRANSPORTATION FOR D/C TO [facility];ALL SAFETY PRECAUTIONS REMAIN IN PLACE WITH BED ALARM;CALL LIGHT IN REACH;WILL CONTINUE TO MONITOR
--- NOTE | 2020-05-20 15:40 | NUR ---
Discharge instructions given. Patient verbalizes understanding of same. Discharged in stable condition via [facility] to [facility] with *Other. All belongings sent with pt. PT TRANSPORTED TO [facility] IN STABLE CONDITION VIA WHEELCHAIR ACCOMPANIED BY [facility] REP;ALL BELONGINGS LEFT WITH PT INCLUDING RX FOR CIPRO,LEVEMIR,NOVOLOG AND LOPRESSOR.
== END 2020-05-20 15:40 | DRG 638 ==
LOC: ED 06:24 → ED-I 09:27 → ED 09:52 → MS2 09:53 → ICU 09:54 → MS2 05-16 12:15 → ICU 05-16 12:16 → MS2 05-17 18:11
PROVIDERS: Nurse Practitioner; ADMIT Internal Medicine; ATTEND Internal Medicine
DX: E10.649 Type 1 diabetes mellitus with hypoglycemia without coma (principal); N39.0 Urinary tract infection, site not specified; R78.81 Bacteremia; I12.9 Hypertensive chronic kidney disease with stage 1 through stage 4 chronic kidney disease, or unspecified chronic kidney disease; E10.22 Type 1 diabetes mellitus with diabetic chronic kidney disease; I16.0 Hypertensive urgency; N18.30 Chronic kidney disease, stage 3 unspecified; I69.919 Unspecified symptoms and signs involving cognitive functions following unspecified cerebrovascular disease; F01.50 Vascular dementia, unspecified severity, without behavioral disturbance, psychotic disturbance, mood disturbance, and anxiety; I95.9 Hypotension, unspecified; E10.65 Type 1 diabetes mellitus with hyperglycemia; E78.5 Hyperlipidemia, unspecified; R76.8 Other specified abnormal immunological findings in serum; B96.89 Other specified bacterial agents as the cause of diseases classified elsewhere; Z86.74 Personal history of sudden cardiac arrest; Z79.01 Long term (current) use of anticoagulants; Z86.19 Personal history of other infectious and parasitic diseases; Z79.4 Long term (current) use of insulin; Z86.711 Personal history of pulmonary embolism; Z20.828 Contact with and (suspected) exposure to other viral communicable diseases
CPT/HCPCS: G0378; J0692; J0713